=== PATIENT | female | born 1965 | race Caucasian/White ===

== ENCOUNTER 2018-10-17 18:47 | Emergency (ER) | payer SELFPAY ==
[~2018-10-17] VITALS: Ht 162.6 cm; Wt 63.5 kg
--- OUTSIDE RECORDS SUMMARY | 2018-10-17 18:52 | XMS REPORT | Clinical Summary ---
Author Author Admin, Bridgette Organization [facility] [employer] Address Unknown Phone Unavailable Allergies, Adverse Reactions, Alerts Allergy Name Reaction Description Start Date Severity Status Provider HYDROCODONE Critical Active Stephanie Castro APRN NKDA Mild No Longer Active Stephanie Castro APRN NKDA Critical No Longer Active Tressa Sood RN NKDA UNK Inactive Melissa Sher RN Conditions or Problems Problem Name Problem Code Onset Date Status Entry Date Provider Comment Standard Description Annotate Axillary acute lymphangitis, left 682.3 Active Roman Toledo MD Cellulitis and abscess of upper arm and forearm BMI 24-24.9 Active Stephanie Castro APRN Body Mass Index between 19-24, adult Laceration with foreign body of right index finger with damage to nail, initial encounter 883.1 Active Stephaine Castro APRN Open wound of fingers, complicated WITHOUT FB Encounter for removal of sutures V58.32 Inactive Stephanie Castro APRN Encounter for removal of sutures Encounter for removal of sutures ICD-V58.32 Inactive Stephanie Ruffinum HOSPITAL EDUCATOR Medication List Medication Instructions Start Date Stop Date Generic Name NDC Status Provider Patient Instruction ENDOCET 5-325 MG ORAL TABLET 1 every 6 hr prn OXYCODONE-ACETAMINOPHEN 84605322665 No Longer Active Stephanie Castro APRN Active BENZONATATE 100 MG ORAL CAPSULE 1 cap as needed 3x aday BENZONATATE 08516497708 No Longer Active Stephanie Ruffinum HUSSEIN Active AUGMENTIN 875-125 MG ORAL TABLET 1 tab every 12 hrs stop 1-30-17 AMOXICILLIN-POT CLAVULANATE 99746059164 No Longer Active Stephanie Castro HUSSEIN Active CYCLOBENZAPRINE HCL 10 MG ORAL TABLET 1 tab TID CYCLOBENZAPRINE HCL 64425726680 No Longer Active Roman Toledo MD Active CYCLOBENZAPRINE HCL 10 MG ORAL TABLET 1 tab TID CYCLOBENZAPRINE HCL 10 MG ORAL TABLET 423354 CYCLOBENZAPRINE HCL Inactive AUGMENTIN 875-125 MG ORAL TABLET 1 tab every 12 hrs stop 08-11-16 AUGMENTIN 875-125 MG ORAL TABLET 474041 AMOXICILLIN-POT CLAVULANATE Inactive BENZONATATE 100 MG ORAL CAPSULE 1 cap as needed 3x aday BENZONATATE 100 MG ORAL CAPSULE 362756 BENZONATATE Inactive ENDOCET 5-325 MG ORAL TABLET 1 every 6 hr prn ENDOCET 5-325 MG ORAL TABLET [id number] OXYCODONE-ACETAMINOPHEN Inactive Vital Signs Date Name Value Unit Range Description blood pressure, diastolic, repeated by physician 76 BP roca blood pressure, diastolic 76 mm[Hg] BP roca blood pressure, systolic, repeated by physician 110 BP sys blood pressure, systolic 110 mm[Hg] BP sys height E&M 65.5 [in_us] Bdy height pulse rate E&M 74 /min Heart rate temperature E&M 97.6 [degF] Body temperature weight E&M 147 [lb_av] Weight Measured blood pressure, diastolic, repeated by physician 83 BP roca blood pressure, diastolic 83 mm[Hg] BP roca blood pressure, systolic, repeated by physician 116 BP sys blood pressure, systolic 116 mm[Hg] BP sys height E&M 65.5 [in_us] Bdy height pulse rate E&M 71 /min Heart rate temperature E&M 97.8 [degF] Body temperature weight E&M 146 [lb_av] Weight Measured Diagnostic Results Date Name Value Unit Range Description Office Visit: WC-cut rt pointer finger - Chemistry HDL cholesterol, serum, target level 40 mg/dL cholesterol, target level 200 mg/dL triglyceride, target level 150 mg/dL Encounters Code Encounter Date Provider Facility CPT-84689 Level 2 Est. Patient 19:39:20 ORDER ADMINISTRATOR Stephaniederrell Castro APRN [facility] [place] CPT-57906 Level 3 New Patient 17:10:13 ORDER ADMINISTRATOR Roman Toledo MD [facility] Procedures Code Procedure Name Date Entry Date Standard Description CPT-LAC Laceration 11:23:18 ORDER ADMINISTRATOR CPT-62755 First Vx - Ix admin via ID IM or jet injects without counseling by physician 11:16:37 ORDER ADMINISTRATOR CPT-81534 Boost[employer] Intramuscular Suspension 5-2.5-18.5 11:16:37 ORDER ADMINISTRATOR
--- OUTSIDE RECORDS SUMMARY | 2018-10-17 18:52 | XMS REPORT | Clinical Summary ---
Author Author Admin, E Organization [facility] [employer] Address Unknown Phone Unavailable Allergies, Adverse Reactions, Alerts Allergy Name Reaction Description Start Date Severity Status Provider HYDROCODONE Critical Active Stephanie Ruffinum HUSSEIN NKDA Mild No Longer Active Stephanie Yokum HUSSEIN NKDA Critical No Longer Active Tressa Sood RN NKDA UNK Inactive Melissa Sher RN Conditions or Problems Problem Name Problem Code Onset Date Status Entry Date Provider Comment Standard Description Annotate Axillary acute lymphangitis, left 682.3 Active Roman Toledo MD Cellulitis and abscess of upper arm and forearm BMI 24-24.9 Active Stephaniederrell Castro APRN Body Mass Index between 19-24, adult Laceration with foreign body of right index finger with damage to nail, initial encounter 883.1 Active Stephanie Castro APRN Open wound of fingers, complicated WITHOUT FB Encounter for removal of sutures V58.32 Inactive Stephanie Castro APRN Encounter for removal of sutures Encounter for removal of sutures ICD-V58.32 Inactive Stephanie Yokum CUSTOMER SERVICE DRIVER Medication List Medication Instructions Start Date Stop Date Generic Name NDC Status Provider Patient Instruction ENDOCET 5-325 MG ORAL TABLET 1 every 6 hr prn OXYCODONE-ACETAMINOPHEN 52266023478 No Longer Active Stephanie Yokum HUSSEIN Active BENZONATATE 100 MG ORAL CAPSULE 1 cap as needed 3x aday BENZONATATE 64425475711 No Longer Active Stephanie Yokum CUSTOMER SERVICE DRIVER Active AUGMENTIN 875-125 MG ORAL TABLET 1 tab every 12 hrs stop 08-11-16 AMOXICILLIN-POT CLAVULANATE 13771329621 No Longer Active Stephanie Castro HUSSEIN Active CYCLOBENZAPRINE HCL 10 MG ORAL TABLET 1 tab TID CYCLOBENZAPRINE HCL 25049319434 No Longer Active Roman Toledo MD Active CYCLOBENZAPRINE HCL 10 MG ORAL TABLET 1 tab TID CYCLOBENZAPRINE HCL 10 MG ORAL TABLET 829590 CYCLOBENZAPRINE HCL Inactive AUGMENTIN 875-125 MG ORAL TABLET 1 tab every 12 hrs stop 08-11-16 AUGMENTIN 875-125 MG ORAL TABLET 327959 AMOXICILLIN-POT CLAVULANATE Inactive BENZONATATE 100 MG ORAL CAPSULE 1 cap as needed 3x aday BENZONATATE 100 MG ORAL CAPSULE 277484 BENZONATATE Inactive ENDOCET 5-325 MG ORAL TABLET 1 every 6 hr prn ENDOCET 5-325 MG ORAL TABLET 1322687 OXYCODONE-ACETAMINOPHEN Inactive Vital Signs Date Name Value [...] mg/dL Encounters Code Encounter Date Provider Facility CPT-26721 Level 2 Est. Patient 19:39:20 TRAY DRIER OPERATOR Stephaniederrell Castro APRN [facility] CPT-62774 Level 3 New Patient 17:10:13 TRAY DRIER OPERATOR Roman [facility]edo MD [facility] Procedures Code Procedure Name Date Entry Date Standard Description CPT-LAC Laceration 11:23:18 TRAY DRIER OPERATOR CPT-75182 First Vx - Ix admin via ID IM or jet injects without counseling by physician 11:16:37 TRAY DRIER OPERATOR CPT-52460 Boostrix Intramuscular Suspension 5-2.5-18.5 11:16:37 TRAY DRIER OPERATOR
--- OUTSIDE RECORDS SUMMARY | 2018-10-17 18:52 | XMS REPORT | Clinical Summary ---
Author Author Admin, E Organization [facility] [employer] Address Unknown Phone Unavailable Allergies, Adverse Reactions, Alerts Allergy Name Reaction Description Start Date Severity Status Provider HYDROCODONE Critical Active Stephanie Ruffinum BOARD SAW RUNNER NKDA Mild No Longer Active Stephaniederrell Ruffinum HUSSEIN NKDA Critical No Longer Active Tressa [...] FB Encounter for removal of sutures V58.32 Active Stephanie Castro APRN Encounter for removal of sutures Medication List Medication Instructions Start Date Stop Date Generic Name [facility] Status Provider Patient Instruction ENDOCET 5-325 MG ORAL TABLET 1 every 6 hr prn OXYCODONE-ACETAMINOPHEN 46154742507 No Longer Active Stephanie Yoladonnaum BOARD SAW RUNNER Active BENZONATATE 100 MG ORAL CAPSULE 1 cap as needed 3x aday BENZONATATE 80461451325 No Longer Active Stephanie Yokum BOARD SAW RUNNER Active AUGMENTIN 875-125 MG ORAL TABLET 1 tab every 12 hrs stop 08-11-16 AMOXICILLIN-POT CLAVULANATE 70741583102 No Longer Active Stephanie Yokum BOARD SAW RUNNER Active CYCLOBENZAPRINE HCL 10 MG ORAL TABLET 1 tab TID CYCLOBENZAPRINE HCL 34539188783 No Longer Active Roman Toledo MD Active CYCLOBENZAPRINE HCL 10 MG ORAL TABLET 1 tab TID CYCLOBENZAPRINE HCL 10 MG ORAL TABLET 218230 CYCLOBENZAPRINE HCL Inactive AUGMENTIN 875-125 MG ORAL TABLET 1 tab every 12 hrs stop 08-11-16 AUGMENTIN 875-125 MG ORAL TABLET 908548 AMOXICILLIN-POT CLAVULANATE Inactive BENZONATATE 100 MG ORAL CAPSULE 1 cap as needed 3x aday BENZONATATE 100 MG ORAL CAPSULE 622566 BENZONATATE Inactive ENDOCET 5-325 MG ORAL TABLET 1 every 6 hr prn ENDOCET 5-325 MG ORAL TABLET 4789354 OXYCODONE-ACETAMINOPHEN Inactive Vital Signs Date Name Value [...] mg/dL Encounters Code Encounter Date Provider Facility CPT-13547 Level 2 Est. Patient 19:39:20 OPERATIONAL TRAINER Stephanie Castro APRN [facility] [place] CPT-48454 Level 3 New Patient 17:10:13 OPERATIONAL TRAINER Roman Toledo MD [facility] Procedures Code Procedure Name Date Entry Date Standard Description CPT-LAC Laceration 11:23:18 OPERATIONAL TRAINER CPT-28374 First Vx - Ix admin via ID IM or jet injects without counseling by physician 11:16:37 OPERATIONAL TRAINER CPT-13300 Boost[employer] Intramuscular Suspension 5-2.5-18.5 11:16:37 OPERATIONAL TRAINER
--- OUTSIDE RECORDS SUMMARY | 2018-10-17 18:53 | XMS REPORT | Clinical Summary ---
Author Author Admin, Bridgette Organization [facility] Address Unknown Phone Unavailable Allergies, Adverse Reactions, Alerts Allergy Name Reaction Description Start Date Severity Status Provider HYDROCODONE Critical Active Stephanie Coltladonnaum HEAT TREAT FURNACE OPERATOR NKDA Mild No Longer Active Stephanie Yokum HEAT TREAT FURNACE OPERATOR NKDA Critical No Longer Active Tressa Sood RN NKDA UNK Inactive Melissa Sher RN Conditions or Problems Problem Name Problem Code Onset Date Status Entry Date Provider Comment Standard Description Annotate Axillary acute lymphangitis, left 682.3 Active Roman Toledo MD Cellulitis and abscess of upper arm and forearm BMI 24-24.9 Active Stephanie Yoreji SAVAGE Body Mass Index between 19-24, adult Laceration with foreign body of right index finger with damage to nail, initial encounter 883.1 Active Stephanie Castro APRN Open wound of fingers, complicated WITHOUT FB Medication List Medication Instructions Start Date Stop Date Generic Name NDC Status Provider Patient Instruction ENDOCET 5-325 MG ORAL TABLET 1 every 6 hr prn OXYCODONE-ACETAMINOPHEN [id number] No Longer Active Stephanie Yokum HEAT TREAT FURNACE OPERATOR Active BENZONATATE 100 MG ORAL CAPSULE 1 cap as needed 3x aday BENZONATATE 64440067592 No Longer Active Stephanie Yokum HEAT TREAT FURNACE OPERATOR Active AUGMENTIN 875-125 MG ORAL TABLET 1 tab every 12 hrs stop 08-11-16 AMOXICILLIN-POT CLAVULANATE 60568540549 No Longer Active Stephanie Ruffinum HEAT TREAT FURNACE OPERATOR Active CYCLOBENZAPRINE HCL 10 MG ORAL TABLET 1 tab TID CYCLOBENZAPRINE HCL 92624422656 No Longer Active Roman Toledo MD Active CYCLOBENZAPRINE HCL 10 MG ORAL TABLET 1 tab TID CYCLOBENZAPRINE HCL 10 MG ORAL TABLET 921904 CYCLOBENZAPRINE HCL Inactive AUGMENTIN 875-125 MG ORAL TABLET 1 tab every 12 hrs stop 08-11-16 AUGMENTIN 875-125 MG ORAL TABLET 842475 AMOXICILLIN-POT CLAVULANATE Inactive BENZONATATE 100 MG ORAL CAPSULE 1 cap as needed 3x aday BENZONATATE 100 MG ORAL CAPSULE 695640 BENZONATATE Inactive ENDOCET 5-325 MG ORAL TABLET 1 every 6 hr prn ENDOCET 5-325 MG ORAL TABLET 3800665 OXYCODONE-ACETAMINOPHEN Inactive Vital Signs Date Name Value Unit Range Description blood pressure, diastolic, repeated by physician 83 [...] mg/dL Encounters Code Encounter Date Provider Facility CPT-19488 Level 3 New Patient 17:10:13 IT APPLICATION ARCHITECT Roman Toledo MD [facility] Procedures Code Procedure Name Date Entry Date Standard Description CPT-LAC Laceration 11:23:18 IT APPLICATION ARCHITECT CPT-45689 First Vx - Ix admin via ID IM or jet injects without counseling by physician 11:16:37 IT APPLICATION ARCHITECT CPT-59703 Boostrix Intramuscular Suspension 5-2.5-18.5 11:16:37 IT APPLICATION ARCHITECT
--- OUTSIDE RECORDS SUMMARY | 2018-10-17 18:53 | XMS REPORT | Clinical Summary ---
Author Author Admin, E Organization [employer] Address Unknown Phone Unavailable Allergies, Adverse Reactions, Alerts Allergy Name Reaction Description Start Date Severity Status Provider HYDROCODONE Critical Active Stephaniederrell Ruffinum AEROSPACE MEDICINE PHYSICIAN NKDA Mild No Longer Active Stephanie Coltladonnaum AEROSPACE MEDICINE PHYSICIAN NKDA Critical No Longer Active Tressa Sood RN NKDA UNK Inactive Melissa Sher RN Conditions or Problems Problem Name Problem Code Onset Date Status Entry Date Provider Comment Standard Description Annotate Axillary acute lymphangitis, left 682.3 Active Roman Toledo MD Cellulitis and abscess of upper arm and forearm BMI 24-24.9 Active Stephanie Augustinum AEROSPACE MEDICINE PHYSICIAN Body Mass Index between 19-24, adult Laceration with foreign body of right index finger with damage to nail, initial encounter 883.1 Active Stephanie Castro APRN Open wound of fingers, complicated WITHOUT FB Medication List Medication Instructions Start Date Stop Date Generic Name ND Status Provider Patient Instruction ENDOCET 5-325 MG ORAL TABLET 1 every 6 hr prn OXYCODONE-ACETAMINOPHEN [id number] No Longer Active Stephanie Augustinum HUSSEIN Active BENZONATATE 100 MG ORAL CAPSULE 1 cap as needed 3x aday BENZONATATE 01160797624 No Longer Active Stephanie Yokum AEROSPACE MEDICINE PHYSICIAN Active AUGMENTIN 875-125 MG ORAL TABLET 1 tab every 12 hrs stop 08-11-16 AMOXICILLIN-POT CLAVULANATE 41998085255 No Longer Active Stephanie Yoladonnaum AEROSPACE MEDICINE PHYSICIAN Active CYCLOBENZAPRINE HCL 10 MG ORAL TABLET 1 tab TID CYCLOBENZAPRINE HCL 43772046394 No Longer Active Roman Toledo MD Active CYCLOBENZAPRINE HCL 10 MG ORAL TABLET 1 tab TID CYCLOBENZAPRINE HCL 10 MG ORAL TABLET 727194 CYCLOBENZAPRINE HCL Inactive AUGMENTIN 875-125 MG ORAL TABLET 1 tab every 12 hrs stop 08-11-16 AUGMENTIN 875-125 MG ORAL TABLET 459751 AMOXICILLIN-POT CLAVULANATE Inactive BENZONATATE 100 MG ORAL CAPSULE 1 cap as needed 3x aday BENZONATATE 100 MG ORAL CAPSULE 700700 BENZONATATE Inactive ENDOCET 5-325 MG ORAL TABLET 1 every 6 hr prn ENDOCET 5-325 MG ORAL TABLET 2487097 OXYCODONE-ACETAMINOPHEN Inactive Vital Signs Date Name Value [...] mg/dL Encounters Code Encounter Date Provider Facility CPT-42358 Level 3 New Patient 17:10:13 SLEEVE BASTER Roman Toledo MD [facility] Procedures Code Procedure Name Date Entry Date Standard Description CPT-LAC Laceration 11:23:18 SLEEVE BASTER CPT-80475 First Vx - Ix admin via ID IM or jet injects without counseling by physician 11:16:37 SLEEVE BASTER CPT-17016 Boostrix Intramuscular Suspension 5-2.5-18.5 11:16:37 SLEEVE BASTER
--- OUTSIDE RECORDS SUMMARY | 2018-10-17 18:53 | XMS REPORT | Clinical Summary ---
Author Author Admin, E Organization [employer] Address Unknown Phone Unavailable Allergies, Adverse Reactions, Alerts Allergy Name Reaction Description Start Date Severity Status Provider HYDROCODONE Critical Active Stephaniederrell Ruffinum WEB ENGINEER NKDA Mild No Longer Active Stephanie Coltladonnaum WEB ENGINEER NKDA Critical No Longer Active Tressa Sood RN NKDA UNK Inactive Melissa Sher RN Conditions or Problems Problem Name Problem Code Onset Date Status Entry Date Provider Comment Standard Description Annotate Axillary acute lymphangitis, left 682.3 Active Roman Toledo MD Cellulitis and abscess of upper arm and forearm BMI 24-24.9 Active Stephanie Augustinum WEB ENGINEER Body Mass Index between 19-24, adult Laceration with foreign body of right index finger with damage to nail, initial encounter 883.1 Active Stephanie Castro APRN Open wound of fingers, complicated WITHOUT FB Medication List Medication Instructions Start Date Stop Date Generic Name ND Status Provider Patient Instruction ENDOCET 5-325 MG ORAL TABLET 1 every 6 hr prn OXYCODONE-ACETAMINOPHEN 44216788954 No Longer Active Stephanie Augustinum HUSSEIN Active BENZONATATE 100 MG ORAL CAPSULE 1 cap as needed 3x aday BENZONATATE 52450570709 No Longer Active Stephanie Yokum WEB ENGINEER Active AUGMENTIN 875-125 MG ORAL TABLET 1 tab every 12 hrs stop 08-11-16 AMOXICILLIN-POT CLAVULANATE 44129599608 No Longer Active Stephanie Yoladonnaum WEB ENGINEER Active CYCLOBENZAPRINE HCL 10 MG ORAL TABLET 1 tab TID CYCLOBENZAPRINE HCL 36165583825 No Longer Active Roman Toledo MD Active CYCLOBENZAPRINE HCL 10 MG ORAL TABLET 1 tab TID CYCLOBENZAPRINE HCL 10 MG ORAL TABLET 429719 CYCLOBENZAPRINE HCL Inactive AUGMENTIN 875-125 MG ORAL TABLET 1 tab every 12 hrs stop 08-11-16 AUGMENTIN 875-125 MG ORAL TABLET 235272 AMOXICILLIN-POT CLAVULANATE Inactive BENZONATATE 100 MG ORAL CAPSULE 1 cap as needed 3x aday BENZONATATE 100 MG ORAL CAPSULE 476590 BENZONATATE Inactive ENDOCET 5-325 MG ORAL TABLET 1 every 6 hr prn ENDOCET 5-325 MG ORAL TABLET 7144850 OXYCODONE-ACETAMINOPHEN Inactive Vital Signs Date Name Value [...] mg/dL Encounters Code Encounter Date Provider Facility CPT-92031 Level 3 New Patient 17:10:13 PRE ALGEBRA TEACHER Roman Toledo MD [facility] Procedures Code Procedure Name Date Entry Date Standard Description CPT-LAC Laceration 11:23:18 PRE ALGEBRA TEACHER CPT-04286 First Vx - Ix admin via ID IM or jet injects without counseling by physician 11:16:37 PRE ALGEBRA TEACHER CPT-70863 Boostrix Intramuscular Suspension 5-2.5-18.5 11:16:37 PRE ALGEBRA TEACHER
--- OUTSIDE RECORDS SUMMARY | 2018-10-17 18:53 | XMS REPORT | Clinical Summary ---
Author Author Admin, E Organization [facility] [employer] Address Unknown Phone Unavailable Allergies, Adverse Reactions, Alerts Allergy Name Reaction Description Start Date Severity Status Provider HYDROCODONE Critical Active Stephanie Ruffinum DONOR SERVICES SPECIALIST NKDA Mild No Longer Active Stephanie Yokum HUSSEIN NKDA Critical No Longer Active Tressa Sood RN NKDA UNK Inactive Melissa Sher RN Conditions or Problems Problem Name Problem Code Onset Date Status Entry Date Provider Comment Standard Description Annotate Axillary acute lymphangitis, left 682.3 Active Roman Toledo MD Cellulitis and abscess of upper arm and forearm BMI 24-24.9 Active Stephanie Yokum HUSSEIN Body Mass Index between 19-24, adult Laceration with foreign body of right index finger with damage to nail, initial encounter 883.1 Active Stephanie Ruffinum HUSSEIN Open wound of fingers, complicated WITHOUT FB Encounter for removal of sutures V58.32 Active Stephanie Ruffinum HUSSEIN Encounter for removal of sutures Medication List Medication Instructions Start Date Stop Date Generic Name NDC Status Provider Patient Instruction ENDOCET 5-325 MG ORAL TABLET 1 every 6 hr prn OXYCODONE-ACETAMINOPHEN 19651003152 No Longer Active Stephanie Yokum DONOR SERVICES SPECIALIST Active BENZONATATE 100 MG ORAL CAPSULE 1 cap as needed 3x aday BENZONATATE 36122413814 No Longer Active Stephanie Yokum DONOR SERVICES SPECIALIST Active AUGMENTIN 875-125 MG ORAL TABLET 1 tab every 12 hrs stop 08-11-16 AMOXICILLIN-POT CLAVULANATE 38994539483 No Longer Active Stephanie Yokum HUSSEIN Active CYCLOBENZAPRINE HCL 10 MG ORAL TABLET 1 tab TID CYCLOBENZAPRINE HCL 30351506819 No Longer Active Roman Toledo MD Active CYCLOBENZAPRINE HCL 10 MG ORAL TABLET 1 tab TID CYCLOBENZAPRINE HCL 10 MG ORAL TABLET 449700 CYCLOBENZAPRINE HCL Inactive AUGMENTIN 875-125 MG ORAL TABLET 1 tab every 12 hrs stop 08-11-16 AUGMENTIN 875-125 MG ORAL TABLET 115093 AMOXICILLIN-POT CLAVULANATE Inactive BENZONATATE 100 MG ORAL CAPSULE 1 cap as needed 3x aday BENZONATATE 100 MG ORAL CAPSULE 753516 BENZONATATE Inactive ENDOCET 5-325 MG ORAL TABLET 1 every 6 hr prn ENDOCET 5-325 MG ORAL TABLET 4673083 OXYCODONE-ACETAMINOPHEN Inactive Vital Signs Date Name Value [...] mg/dL Encounters Code Encounter Date Provider Facility CPT-39153 Level 2 Est. Patient 19:39:20 FANCY NEEDLEWORKER Stephanie Castro APRN [facility] CPT-53594 Level 3 New Patient 17:10:13 FANCY NEEDLEWORKER Roman Toledo MD [facility] Procedures Code Procedure Name Date Entry Date Standard Description CPT-LAC Laceration 11:23:18 FANCY NEEDLEWORKER CPT-94518 First Vx - Ix admin via ID IM or jet injects without counseling by physician 11:16:37 FANCY NEEDLEWORKER CPT-63833 Boostrix Intramuscular Suspension 5-2.5-18.5 11:16:37 FANCY NEEDLEWORKER
--- OUTSIDE RECORDS SUMMARY | 2018-10-17 18:53 | XMS REPORT | Clinical Summary ---
Author Author Admin, E Organization [employer] Address Unknown Phone Unavailable Allergies, Adverse Reactions, Alerts Allergy Name Reaction Description Start Date Severity Status Provider HYDROCODONE Critical Active Stephaniederrell Ruffinum AUTOMATION TEST DEVELOPER NKDA Mild No Longer Active Stephanie Coltladonnaum AUTOMATION TEST DEVELOPER NKDA Critical No Longer Active Tressa Sood RN NKDA UNK Inactive Melissa Sher RN Conditions or Problems Problem Name Problem Code Onset Date Status Entry Date Provider Comment Standard Description Annotate Axillary acute lymphangitis, left 682.3 Active Roman Toledo MD Cellulitis and abscess of upper arm and forearm BMI 24-24.9 Active Stephanie Augustinum AUTOMATION TEST DEVELOPER Body Mass Index between 19-24, adult Laceration with foreign body of right index finger with damage to nail, initial encounter 883.1 Active Stephanie Castro APRN Open wound of fingers, complicated WITHOUT FB Medication List Medication Instructions Start Date Stop Date Generic Name ND Status Provider Patient Instruction ENDOCET 5-325 MG ORAL TABLET 1 every 6 hr prn OXYCODONE-ACETAMINOPHEN 80930293269 No Longer Active Stephanie Augustinum HUSSEIN Active BENZONATATE 100 MG ORAL CAPSULE 1 cap as needed 3x aday BENZONATATE 27747000636 No Longer Active Stephanie Yokum AUTOMATION TEST DEVELOPER Active AUGMENTIN 875-125 MG ORAL TABLET 1 tab every 12 hrs stop 08-11-16 AMOXICILLIN-POT CLAVULANATE 42782906259 No Longer Active Stephanie Yoladonnaum AUTOMATION TEST DEVELOPER Active CYCLOBENZAPRINE HCL 10 MG ORAL TABLET 1 tab TID CYCLOBENZAPRINE HCL 19043235052 No Longer Active Roman Toledo MD Active CYCLOBENZAPRINE HCL 10 MG ORAL TABLET 1 tab TID CYCLOBENZAPRINE HCL 10 MG ORAL TABLET 805613 CYCLOBENZAPRINE HCL Inactive AUGMENTIN 875-125 MG ORAL TABLET 1 tab every 12 hrs stop 08-11-16 AUGMENTIN 875-125 MG ORAL TABLET 524333 AMOXICILLIN-POT CLAVULANATE Inactive BENZONATATE 100 MG ORAL CAPSULE 1 cap as needed 3x aday BENZONATATE 100 MG ORAL CAPSULE 439721 BENZONATATE Inactive ENDOCET 5-325 MG ORAL TABLET 1 every 6 hr prn ENDOCET 5-325 MG ORAL TABLET 2042258 OXYCODONE-ACETAMINOPHEN Inactive Vital Signs Date Name Value [...] mg/dL Encounters Code Encounter Date Provider Facility CPT-20855 Level 3 New Patient 17:10:13 AVIATION ENGINEER Roman Toledo MD [facility] Procedures Code Procedure Name Date Entry Date Standard Description CPT-LAC Laceration 11:23:18 AVIATION ENGINEER CPT-51546 First Vx - Ix admin via ID IM or jet injects without counseling by physician 11:16:37 AVIATION ENGINEER CPT-95475 Boostrix Intramuscular Suspension 5-2.5-18.5 11:16:37 AVIATION ENGINEER
--- OUTSIDE RECORDS SUMMARY | 2018-10-17 18:53 | XMS REPORT | Clinical Summary ---
Author Author Admin, Bridgette Organization [facility] Address Unknown Phone Unavailable Allergies, Adverse Reactions, Alerts Allergy Name Reaction Description Start Date Severity Status Provider HYDROCODONE Critical Active Stephanie Coltladonnaum MOTOR VEHICLE FIELD REPRESENTATIVE NKDA Mild No Longer Active Stephanie Yokum MOTOR VEHICLE FIELD REPRESENTATIVE NKDA Critical No Longer Active Tressa Sood [...] TABLET 1 every 6 hr prn OXYCODONE-ACETAMINOPHEN 97692043941 No Longer Active Stephanie Yokum MOTOR VEHICLE FIELD REPRESENTATIVE Active BENZONATATE 100 MG ORAL CAPSULE 1 cap as needed 3x aday BENZONATATE 90419277967 No Longer Active Stephanie Yokum MOTOR VEHICLE FIELD REPRESENTATIVE Active AUGMENTIN 875-125 MG ORAL TABLET 1 tab every 12 hrs stop 08-11-16 AMOXICILLIN-POT CLAVULANATE 73001634120 No Longer Active Stephanie Ruffinum MOTOR VEHICLE FIELD REPRESENTATIVE Active CYCLOBENZAPRINE HCL 10 MG ORAL TABLET 1 tab TID CYCLOBENZAPRINE HCL 93573826581 No Longer Active Roman Toledo MD Active CYCLOBENZAPRINE HCL 10 MG ORAL TABLET 1 tab TID CYCLOBENZAPRINE HCL 10 MG ORAL TABLET 965958 CYCLOBENZAPRINE HCL Inactive AUGMENTIN 875-125 MG ORAL TABLET 1 tab every 12 hrs stop 08-11-16 AUGMENTIN 875-125 MG ORAL TABLET 999866 AMOXICILLIN-POT CLAVULANATE Inactive BENZONATATE 100 MG ORAL CAPSULE 1 cap as needed 3x aday BENZONATATE 100 MG ORAL CAPSULE 992971 BENZONATATE Inactive ENDOCET 5-325 MG ORAL TABLET 1 every 6 hr prn ENDOCET 5-325 MG ORAL TABLET 5765512 OXYCODONE-ACETAMINOPHEN Inactive Vital Signs Date Name Value [...] mg/dL Encounters Code Encounter Date Provider Facility CPT-56929 Level 3 New Patient 17:10:13 DOCTOR CHIROPRACTIC Roman Toledo MD [facility] Procedures Code Procedure Name Date Entry Date Standard Description CPT-LAC Laceration 11:23:18 DOCTOR CHIROPRACTIC CPT-91334 First Vx - Ix admin via ID IM or jet injects without counseling by physician 11:16:37 DOCTOR CHIROPRACTIC CPT-01427 Boostrix Intramuscular Suspension 5-2.5-18.5 11:16:37 DOCTOR CHIROPRACTIC
--- OUTSIDE RECORDS SUMMARY | 2018-10-17 18:53 | XMS REPORT | Clinical Summary ---
Author Author Admin, E Organization [facility] Address Unknown Phone Unavailable Allergies, Adverse Reactions, Alerts Allergy Name Reaction Description Start Date Severity Status Provider HYDROCODONE Critical Active Stephanie Gregorykum GANG INVESTIGATOR NKDA Mild No Longer Active Stephanie Yokum [...] TABLET 1 every 6 hr prn OXYCODONE-ACETAMINOPHEN 27256088233 No Longer Active Stephanie Yokum GANG INVESTIGATOR Active BENZONATATE 100 MG ORAL CAPSULE 1 cap as needed 3x aday BENZONATATE 75588774610 No Longer Active Stephanie Yokum GANG INVESTIGATOR Active AUGMENTIN 875-125 MG ORAL TABLET 1 tab every 12 hrs stop 08-11-16 AMOXICILLIN-POT CLAVULANATE 84824974593 No Longer Active Stephanie Yokum HUSSEIN Active CYCLOBENZAPRINE HCL 10 MG ORAL TABLET 1 tab TID CYCLOBENZAPRINE HCL 33596453151 No Longer Active Roman Toledo MD Active CYCLOBENZAPRINE HCL 10 MG ORAL TABLET 1 tab TID CYCLOBENZAPRINE HCL 10 MG ORAL TABLET 545686 CYCLOBENZAPRINE HCL Inactive AUGMENTIN 875-125 MG ORAL TABLET 1 tab every 12 hrs stop 08-11-16 AUGMENTIN 875-125 MG ORAL TABLET 938416 AMOXICILLIN-POT CLAVULANATE Inactive BENZONATATE 100 MG ORAL CAPSULE 1 cap as needed 3x aday BENZONATATE 100 MG ORAL CAPSULE 276379 BENZONATATE Inactive ENDOCET 5-325 MG ORAL TABLET 1 every 6 hr prn ENDOCET 5-325 MG ORAL TABLET 7983642 OXYCODONE-ACETAMINOPHEN Inactive Vital Signs Date Name Value [...] mg/dL Encounters Code Encounter Date Provider Facility CPT-09718 Level 2 Est. Patient 19:39:20 CABINET PROFESSIONAL Stephanie Castro APRN [facility] CPT-80200 Level 3 New Patient 17:10:13 CABINET PROFESSIONAL Roman Toledo MD [facility] Procedures Code Procedure Name Date Entry Date Standard Description CPT-LAC Laceration 11:23:18 CABINET PROFESSIONAL CPT-58170 First Vx - Ix admin via ID IM or jet injects without counseling by physician 11:16:37 CABINET PROFESSIONAL CPT-41308 Boostrix Intramuscular Suspension 5-2.5-18.5 11:16:37 CABINET PROFESSIONAL
--- OUTSIDE RECORDS SUMMARY | 2018-10-17 18:53 | XMS REPORT | Clinical Summary ---
Author Author Admin, Bridgette Organization [facility] Address Unknown Phone Unavailable Allergies, Adverse Reactions, Alerts Allergy Name Reaction Description Start Date Severity Status Provider HYDROCODONE Critical Active Stephanie Coltladonnaum INFORMATION SYSTEMS SUPERVISOR NKDA Mild No Longer Active Stephanie Yokum INFORMATION SYSTEMS SUPERVISOR NKDA Critical No Longer Active Tressa Sood [...] TABLET 1 every 6 hr prn OXYCODONE-ACETAMINOPHEN 78759724257 No Longer Active Stephanie Yokum INFORMATION SYSTEMS SUPERVISOR Active BENZONATATE 100 MG ORAL CAPSULE 1 cap as needed 3x aday BENZONATATE 26445236923 No Longer Active Stephanie Yokum INFORMATION SYSTEMS SUPERVISOR Active AUGMENTIN 875-125 MG ORAL TABLET 1 tab every 12 hrs stop 08-11-16 AMOXICILLIN-POT CLAVULANATE 48011202697 No Longer Active Stephanie Ruffinum INFORMATION SYSTEMS SUPERVISOR Active CYCLOBENZAPRINE HCL 10 MG ORAL TABLET 1 tab TID CYCLOBENZAPRINE HCL 89093984284 No Longer Active Roman Toledo MD Active CYCLOBENZAPRINE HCL 10 MG ORAL TABLET 1 tab TID CYCLOBENZAPRINE HCL 10 MG ORAL TABLET 274911 CYCLOBENZAPRINE HCL Inactive AUGMENTIN 875-125 MG ORAL TABLET 1 tab every 12 hrs stop 08-11-16 AUGMENTIN 875-125 MG ORAL TABLET 233935 AMOXICILLIN-POT CLAVULANATE Inactive BENZONATATE 100 MG ORAL CAPSULE 1 cap as needed 3x aday BENZONATATE 100 MG ORAL CAPSULE 564355 BENZONATATE Inactive ENDOCET 5-325 MG ORAL TABLET 1 every 6 hr prn ENDOCET 5-325 MG ORAL TABLET 7269676 OXYCODONE-ACETAMINOPHEN Inactive Vital Signs Date Name Value Unit Range Description blood pressure, diastolic, repeated by physician 83 BP roac blood pressure, diastolic 83 mm[Hg] BP roca [...] mg/dL Encounters Code Encounter Date Provider Facility CPT-32480 Level 3 New Patient 17:10:13 PROGRAM OFFICER Roman Toledo MD [facility] Procedures Code Procedure Name Date Entry Date Standard Description CPT-LAC Laceration 11:23:18 PROGRAM OFFICER CPT-38445 First Vx - Ix admin via ID IM or jet injects without counseling by physician 11:16:37 PROGRAM OFFICER CPT-70202 Boostrix Intramuscular Suspension 5-2.5-18.5 11:16:37 PROGRAM OFFICER
--- OUTSIDE RECORDS SUMMARY | 2018-10-17 18:54 | XMS REPORT | Clinical Summary ---
Author Author Admin, Bridgette Organization [facility] Address Unknown Phone Unavailable Allergies, Adverse Reactions, Alerts Allergy Name Reaction Description Start Date Severity Status Provider NKDA Critical Active Tressa Sood RN Conditions or Problems Problem Name Problem Code Onset Date Status Entry Date Provider Comment Standard Description Annotate Axillary acute lymphangitis, left 682.3 Active Roman Toledo MD Cellulitis and abscess of upper arm and forearm Medication List Medication Instructions Start Date Stop Date Generic Name NDC Status Provider Patient Instruction ENDOCET 5-325 MG ORAL TABS 1 every 6 hr prn OXYCODONE- ACETAMINOPHEN 63032218770 Active Roman Toledo MD Active CYCLOBENZAPRINE HCL 10 MG ORAL TABS 1 tab TID CYCLOBENZAPRINE HCL 42042457668 No Longer Active Roman Toledo MD Active AUGMENTIN 875-125 MG ORAL TABS 1 tab every 12 hrs stop 08-11-16 AMOXICILLIN-POT CLAVULANATE 93964649593 Active Tressa Sood RN Active BENZONATATE 100 MG ORAL CAPS 1 cap as needed 3x aday BENZONATATE 49787909433 Active Tressa Sood RN Active CYCLOBENZAPRINE HCL 10 MG ORAL TABS 1 tab TID CYCLOBENZAPRINE HCL 10 MG ORAL TABS 107515 CYCLOBENZAPRINE HCL Inactive Encounters Code Encounter Date Provider Facility CPT-48933 Level 3 New Patient 17:10:13 LIFE CARE PLANNER Roman Toledo MD [facility]
--- OUTSIDE RECORDS SUMMARY | 2018-10-17 18:54 | XMS REPORT | Clinical Summary ---
Author Author Admin, [facility] Organization [facility] Address Unknown Phone Unavailable Allergies, Adverse Reactions, Alerts Allergy Name Reaction Description Start Date Severity Status Provider NKDA Critical Active Tressa Sood RN Conditions or Problems Problem Name Problem Code Onset Date Status Entry Date Provider Comment Standard Description Annotate Problems Unknown Active Medication List Medication Instructions Start Date Stop Date Generic Name NDC Status Provider Patient Instruction AUGMENTIN 875-125 MG ORAL TABS 1 tab every 12 hrs stop 08-11-16 AMOXICILLIN-POT CLAVULANATE 00806864926 Active Tressa Sood RN Active CYCLOBENZAPRINE HCL 10 MG ORAL TABS 1 tab TID CYCLOBENZAPRINE HCL 42878622229 Active Tressa Sood RN Active BENZONATATE 100 MG ORAL CAPS 1 cap as needed 3x aday BENZONATATE 04605264741 Active Tressa Sood RN Active
--- OUTSIDE RECORDS SUMMARY | 2018-10-17 18:54 | XMS REPORT | Clinical Summary ---
Author Author Admin, E Organization [employer] Address Unknown Phone Unavailable Allergies, Adverse Reactions, Alerts Allergy Name Reaction Description Start Date Severity Status Provider HYDROCODONE Critical Active Stephanie Yoladonnaum SOFA INSPECTOR NKDA Mild No Longer Active Stephanie Coltladonnaum SOFA INSPECTOR NKDA Critical No Longer Active Tressa Sood RN NKDA UNK Inactive Melissa Sher RN Conditions or Problems Problem Name Problem Code Onset Date Status Entry Date Provider Comment Standard Description Annotate Axillary acute lymphangitis, left 682.3 Active Roman Toledo MD Cellulitis and abscess of upper arm and forearm BMI 24-24.9 Active Stephanie Augustinum SOFA INSPECTOR Body Mass Index between 19-24, adult Laceration with foreign body of right index finger with damage to nail, initial encounter 883.1 Active Stephanie Castro APRN Open wound of fingers, complicated WITHOUT FB Medication List Medication Instructions Start Date Stop Date Generic Name ND Status Provider Patient Instruction ENDOCET 5-325 MG ORAL TABLET 1 every 6 hr prn OXYCODONE-ACETAMINOPHEN 03498618816 No Longer Active Stephanie Augustinum HUSSEIN Active BENZONATATE 100 MG ORAL CAPSULE 1 cap as needed 3x aday BENZONATATE 87810244589 No Longer Active Stephanie Yokum SOFA INSPECTOR Active AUGMENTIN 875-125 MG ORAL TABLET 1 tab every 12 hrs stop 08-11-16 AMOXICILLIN-POT CLAVULANATE 85498393809 No Longer Active Stephanie Yoladonnaum SOFA INSPECTOR Active CYCLOBENZAPRINE HCL 10 MG ORAL TABLET 1 tab TID CYCLOBENZAPRINE HCL 94797111319 No Longer Active Roman Toledo MD Active CYCLOBENZAPRINE HCL 10 MG ORAL TABLET 1 tab TID CYCLOBENZAPRINE HCL 10 MG ORAL TABLET 153464 CYCLOBENZAPRINE HCL Inactive AUGMENTIN 875-125 MG ORAL TABLET 1 tab every 12 hrs stop 08-11-16 AUGMENTIN 875-125 MG ORAL TABLET 957975 AMOXICILLIN-POT CLAVULANATE Inactive BENZONATATE 100 MG ORAL CAPSULE 1 cap as needed 3x aday BENZONATATE 100 MG ORAL CAPSULE 154200 BENZONATATE Inactive ENDOCET 5-325 MG ORAL TABLET 1 every 6 hr prn ENDOCET 5-325 MG ORAL TABLET 2660414 OXYCODONE-ACETAMINOPHEN Inactive Vital Signs Date Name Value [...] mg/dL Encounters Code Encounter Date Provider Facility CPT-43026 Level 3 New Patient 17:10:13 RECREATION TECHNICIAN Roman Toledo MD [facility] Procedures Code Procedure Name Date Entry Date Standard Description CPT-LAC Laceration 11:23:18 RECREATION TECHNICIAN CPT-95085 First Vx - Ix admin via ID IM or jet injects without counseling by physician 11:16:37 RECREATION TECHNICIAN CPT-32290 Boostrix Intramuscular Suspension 5-2.5-18.5 11:16:37 RECREATION TECHNICIAN
--- OUTSIDE RECORDS SUMMARY | 2018-10-17 18:54 | XMS REPORT | Clinical Summary ---
Author Author Admin, [facility] Organization [facility] Address Unknown Phone Unavailable Allergies, Adverse Reactions, [...] every 12 hrs stop 08-11-16 AMOXICILLIN-POT CLAVULANATE 95755259585 Active Tressa Sood RN Active CYCLOBENZAPRINE HCL 10 MG ORAL TABS 1 tab TID CYCLOBENZAPRINE HCL 59811334567 Active Tressa Sood RN Active BENZONATATE 100 MG ORAL CAPS 1 cap as needed 3x aday BENZONATATE 02817606665 Active Tressa Sood RN Active
--- OUTSIDE RECORDS SUMMARY | 2018-10-17 18:54 | XMS REPORT | Clinical Summary ---
Author Author Admin, E Organization [employer] Address Unknown Phone Unavailable Allergies, Adverse Reactions, Alerts Allergy Name Reaction Description Start Date Severity Status Provider HYDROCODONE Critical Active Stephaniederrell Ruffinum AUTOMOTIVE SPECIALTY TECHNICIAN NKDA Mild No Longer Active Stephanie Coltladonnaum AUTOMOTIVE SPECIALTY TECHNICIAN NKDA Critical No Longer Active Tressa Sood RN NKDA UNK Inactive Melissa Sher RN Conditions or Problems Problem Name Problem Code Onset Date Status Entry Date Provider Comment Standard Description Annotate Axillary acute lymphangitis, left 682.3 Active Roman Toledo MD Cellulitis and abscess of upper arm and forearm BMI 24-24.9 Active Stephanie Augustinum AUTOMOTIVE SPECIALTY TECHNICIAN Body Mass Index between 19-24, adult Laceration with foreign body of right index finger with damage to nail, initial encounter 883.1 Active Stephanie Castro APRN Open wound of fingers, complicated WITHOUT FB Medication List Medication Instructions Start Date Stop Date Generic Name ND Status Provider Patient Instruction ENDOCET 5-325 MG ORAL TABLET 1 every 6 hr prn OXYCODONE-ACETAMINOPHEN 07473016394 No Longer Active Stephanie Augustinum HUSSEIN Active BENZONATATE 100 MG ORAL CAPSULE 1 cap as needed 3x aday BENZONATATE 61890773130 No Longer Active Stephanie Yokum AUTOMOTIVE SPECIALTY TECHNICIAN Active AUGMENTIN 875-125 MG ORAL TABLET 1 tab every 12 hrs stop 08-11-16 AMOXICILLIN-POT CLAVULANATE 96039483480 No Longer Active Stephanie Yoladonnaum AUTOMOTIVE SPECIALTY TECHNICIAN Active CYCLOBENZAPRINE HCL 10 MG ORAL TABLET 1 tab TID CYCLOBENZAPRINE HCL 59235367374 No Longer Active Roman Toledo MD Active CYCLOBENZAPRINE HCL 10 MG ORAL TABLET 1 tab TID CYCLOBENZAPRINE HCL 10 MG ORAL TABLET 225721 CYCLOBENZAPRINE HCL Inactive AUGMENTIN 875-125 MG ORAL TABLET 1 tab every 12 hrs stop 08-11-16 AUGMENTIN 875-125 MG ORAL TABLET 146588 AMOXICILLIN-POT CLAVULANATE Inactive BENZONATATE 100 MG ORAL CAPSULE 1 cap as needed 3x aday BENZONATATE 100 MG ORAL CAPSULE 907009 BENZONATATE Inactive ENDOCET 5-325 MG ORAL TABLET 1 every 6 hr prn ENDOCET 5-325 MG ORAL TABLET 4510875 OXYCODONE-ACETAMINOPHEN Inactive Vital Signs Date Name Value [...] mg/dL Encounters Code Encounter Date Provider Facility CPT-13474 Level 3 New Patient 17:10:13 ROUTER SETTER Roman Toledo MD [facility] Procedures Code Procedure Name Date Entry Date Standard Description CPT-LAC Laceration 11:23:18 ROUTER SETTER CPT-27482 First Vx - Ix admin via ID IM or jet injects without counseling by physician 11:16:37 ROUTER SETTER CPT-27233 Boostrix Intramuscular Suspension 5-2.5-18.5 11:16:37 ROUTER SETTER
--- OUTSIDE RECORDS SUMMARY | 2018-10-17 18:54 | XMS REPORT | Clinical Summary ---
Author Author Admin, [facility] Organization [facility] Address Unknown Phone Unavailable Allergies, Adverse Reactions, Alerts Allergy Name Reaction Description Start Date Severity Status Provider Allergies Unknown Conditions or Problems Problem Name Problem Code Onset Date Status Entry Date Provider Comment Standard Description Annotate Problems Unknown Active Medication List Medication Instructions Start Date Stop Date Generic Name NDC Status Provider Patient Instruction Drug Treatment Unknown - unknown
--- OUTSIDE RECORDS SUMMARY | 2018-10-17 18:54 | XMS REPORT ---
Author Author Migration, Doctor Organization [facility] Address Unknown Phone Unavailable Care Team Providers Care Paper Cleaner Name Role Phone Migration, Doctor Unavailable Unavailable PROBLEMS Type Condition ICD9-CM Code [id number] Code Onset Dates Condition Status SNOMED Code Problem Acute bronchitis 466.0 Active 78147143 Problem Smoking addiction F17.200 Active 033256514 Problem Counseling on substance use and abuse V65.42 Active 476823208 Problem Cervicalgia 723.1 Active 32044711 Problem Lumbago 724.2 Active 956825423 ALLERGIES No Information ENCOUNTERS Encounter Location Date Diagnosis [facility] [address] [place] [phone] Dec, Cervical radicular pain M54.12 and Cough R05 [facility] [address] [place] [phone] November, BP check Z01.30 [facility] [address] [place] [phone] November, [facility] [address] [place] [phone] Aug, [facility] [address] [place] [phone] Aug, Mass of left axilla R22.32 [facility] [address] [place] [phone] Aug, Axillary mass, left R22.32 [facility] [address] [facility] [id number] [address] Jul, [facility] [address] [place] [phone] Jul, Mass of left axilla R22.32 and Lymphadenopathy R59.1 [facility] [address] [place] [address] Jul, [facility] [address] [place] [phone] Jul, [facility] [address] [place] [phone] Jul, [facility] [address] [address] Jul, [facility] [address] [place] [address] Jul, Smoking addiction F17.200 and Lymphadenopathy R59.1 [facility] [address] [place] [phone] Jul, Breast lump N63 ; Encounter for screening mammogram for malignant neoplasm of breast Z12.31 and Mass of left axilla R22.[address] [place] [phone] 14 Oct, 2014 [place] [id number] [place] [phone] Oct, [facility] [address] [address] Jul, [address] [place] [phone] Jul, [facility] [address] [address] Jan, [address] [address] Jan, [facility] [address] [place] [phone] Mar, IMMUNIZATIONS No Known Immunizations SOCIAL HISTORY Never Assessed REASON FOR VISIT [facility] PLAN OF CARE VITAL SIGNS MEDICATIONS Medication Instructions Dosage Frequency Start Date End Date Duration Status cyclobenzaprine 10 mg 1 tablet 3 times per day PRN muscle spasm Jul Active PredniSONE 10 mg 1 Tablet 2 times per day for 5 days Take at 8 am and noon. Do not take after 3 pm Jan, Active Doxycycline Hyclate 100 mg 1 tablet by Oral route 2 times per day for 10 days Jan, Active RESULTS No Results PROCEDURES No Known procedures INSTRUCTIONS MEDICATIONS ADMINISTERED No Known Medications MEDICAL (GENERAL) HISTORY Type Description Date Medical History Infected boil Surgical History hysterectomy 2009 Surgical History boil excision Hospitalization History Surgeries
--- OUTSIDE RECORDS SUMMARY | 2018-10-17 18:54 | XMS REPORT | Clinical Summary ---
Author Author Admin, E Organization [employer] Address Unknown Phone Unavailable Allergies, Adverse Reactions, Alerts Allergy Name Reaction Description Start Date Severity Status Provider HYDROCODONE Critical Active Stephanie Yoladonnaum MANAGING SUPERVISOR NKDA Mild No Longer Active Stephanie Coltladonnaum MANAGING SUPERVISOR NKDA Critical No Longer Active Tressa Sood RN NKDA UNK Inactive Melissa Sher RN Conditions or Problems Problem Name Problem Code Onset Date Status Entry Date Provider Comment Standard Description Annotate Axillary acute lymphangitis, left 682.3 Active Roman Toledo MD Cellulitis and abscess of upper arm and forearm BMI 24-24.9 Active Stephanie Augustinum MANAGING SUPERVISOR Body Mass Index between 19-24, adult Laceration with foreign body of right index finger with damage to nail, initial encounter 883.1 Active Stephanie Castro APRN Open wound of fingers, complicated WITHOUT FB Medication List Medication Instructions Start Date Stop Date Generic Name ND Status Provider Patient Instruction ENDOCET 5-325 MG ORAL TABLET 1 every 6 hr prn OXYCODONE-ACETAMINOPHEN 89679517432 No Longer Active Stephanie Augustinum HUSSEIN Active BENZONATATE 100 MG ORAL CAPSULE 1 cap as needed 3x aday BENZONATATE 89598596721 No Longer Active Stephanie Yokum MANAGING SUPERVISOR Active AUGMENTIN 875-125 MG ORAL TABLET 1 tab every 12 hrs stop 08-11-16 AMOXICILLIN-POT CLAVULANATE 46790632070 No Longer Active Stephanie Yoladonnaum MANAGING SUPERVISOR Active CYCLOBENZAPRINE HCL 10 MG ORAL TABLET 1 tab TID CYCLOBENZAPRINE HCL 67859760013 No Longer Active Roman Toledo MD Active CYCLOBENZAPRINE HCL 10 MG ORAL TABLET 1 tab TID CYCLOBENZAPRINE HCL 10 MG ORAL TABLET 215013 CYCLOBENZAPRINE HCL Inactive AUGMENTIN 875-125 MG ORAL TABLET 1 tab every 12 hrs stop 08-11-16 AUGMENTIN 875-125 MG ORAL TABLET 354252 AMOXICILLIN-POT CLAVULANATE Inactive BENZONATATE 100 MG ORAL CAPSULE 1 cap as needed 3x aday BENZONATATE 100 MG ORAL CAPSULE 936291 BENZONATATE Inactive ENDOCET 5-325 MG ORAL TABLET 1 every 6 hr prn ENDOCET 5-325 MG ORAL TABLET 4215151 OXYCODONE-ACETAMINOPHEN Inactive Vital Signs Date Name Value [...] mg/dL Encounters Code Encounter Date Provider Facility CPT-98271 Level 3 New Patient 17:10:13 TRANSPORT AIDE Roman Toledo MD [facility] Procedures Code Procedure Name Date Entry Date Standard Description CPT-LAC Laceration 11:23:18 TRANSPORT AIDE CPT-12911 First Vx - Ix admin via ID IM or jet injects without counseling by physician 11:16:37 TRANSPORT AIDE CPT-68137 Boostrix Intramuscular Suspension 5-2.5-18.5 11:16:37 TRANSPORT AIDE
--- OUTSIDE RECORDS SUMMARY | 2018-10-17 18:54 | XMS REPORT | Clinical Summary ---
Author Author Admin, PATSY Organization [employer] Address Unknown Phone Unavailable Allergies, Adverse Reactions, [...] 1 every 6 hr prn OXYCODONE- ACETAMINOPHEN 57624518089 Active Roman Toledo MD Active CYCLOBENZAPRINE HCL 10 MG ORAL TABS 1 tab TID CYCLOBENZAPRINE HCL 89733655683 No Longer Active Roman Toledo MD Active AUGMENTIN 875-125 MG ORAL TABS 1 tab every 12 hrs stop 08-11-16 AMOXICILLIN-POT CLAVULANATE 49877952733 Active Tressa Sood RN Active BENZONATATE 100 MG ORAL CAPS 1 cap as needed 3x aday BENZONATATE 00641072274 Active Tressa Sood RN Active CYCLOBENZAPRINE HCL 10 MG ORAL TABS 1 tab TID CYCLOBENZAPRINE HCL 10 MG ORAL TABS 854408 CYCLOBENZAPRINE HCL Inactive Vital Signs Date Name Value Unit Range Description blood pressure, diastolic - 8462-4 62 mm[Hg] BP roca blood pressure, systolic - 8480-6 119 mm[Hg] BP sys height E&M - 8302-2 65 [in_us] Bdy height pulse rate E&M - 8867-4 93 /min Heart rate temperature E&M 98.2 [degF] Body temperature weight E&M - 3141-9 124.5 [lb_av] Weight Measured Encounters Code Encounter Date Provider Facility CPT-41089 Level 3 New Patient 17:10:13 EDUCATIONAL ADVISOR Roman Toledo MD [facility]
--- OUTSIDE RECORDS SUMMARY | 2018-10-17 18:54 | XMS REPORT | Clinical Summary ---
Author Author Admin, Bridgette Organization [facility] Address Unknown Phone Unavailable Allergies, [...] 1 every 6 hr prn OXYCODONE- ACETAMINOPHEN 44787846015 Active Roman Toledo MD Active CYCLOBENZAPRINE HCL 10 MG ORAL TABS 1 tab TID CYCLOBENZAPRINE HCL 84106193882 No Longer Active Roman Toledo MD Active AUGMENTIN 875-125 MG ORAL TABS 1 tab every 12 hrs stop 08-11-16 AMOXICILLIN-POT CLAVULANATE 96518493825 Active Tressa Sood RN Active BENZONATATE 100 MG ORAL CAPS 1 cap as needed 3x aday BENZONATATE 64762249328 Active Tressa Sood RN Active CYCLOBENZAPRINE HCL 10 MG ORAL TABS 1 tab TID CYCLOBENZAPRINE HCL 10 MG ORAL TABS 278968 CYCLOBENZAPRINE HCL Inactive Encounters Code Encounter Date Provider Facility CPT-70276 Level 3 New Patient 17:10:13 METAL FLOORING INSTALLER Roman Toledo MD [facility]
--- OUTSIDE RECORDS SUMMARY | 2018-10-17 18:55 | XMS REPORT ---
Author [facility] Address [address] [place] [address] Care Team Providers Care National Sales Manager Name Role Phone CEJA JUSTUS Unavailable PROBLEMS Type Condition ICD9-CM Code GSN13-CU Code Onset Dates Condition Status SNOMED Code Problem Smoking addiction F17.200 Active 213279215 Problem Acute bronchitis 466.0 Active 39069439 Problem Counseling on substance use and abuse V65.42 Active 417934082 Problem Lumbago 724.2 Active 791487805 Problem Cervicalgia 723.1 Active 40774650 ALLERGIES Substance Reaction Event Type Date Status N.K.D.A. Unknown Non Drug Allergy Jul, Unknown SOCIAL HISTORY No smoking Hx information available PLAN OF CARE Activity Details Follow Up prn,After mammogram Reason: VITAL SIGNS Height 66 in 2016-07-16 Weight 127.3 lbs 2016-07-16 Temperature 98.6 degrees Fahrenheit 2016-07-16 Heart Rate 100 bpm 2016-07-16 Respiratory Rate 20 2016-07-16 BMI 20.54 kg/m2 2016-07-16 Blood pressure systolic 102 mmHg 2016-07-16 Blood pressure diastolic 70 mmHg 2016-07-16 MEDICATIONS Medication Instructions Dosage Frequency Start Date End Date Duration Status Cyclobenzaprine HCl 10 MG Orally Three times a day 1 tablet 8h Active Benzonatate 100 MG Orally Three times a day 1 capsule as needed 8h Active RESULTS Name Result Date Reference Range Mammogram Dx, Bilateral 2016-07-29 PROCEDURES Procedure Date Ordered Related Diagnosis Body Site Preventive Care Est Pt. Age 40-64 Jul 16, 2016 IMMUNIZATIONS No Known Immunizations
--- OUTSIDE RECORDS SUMMARY | 2018-10-17 18:55 | XMS REPORT ---
Author Author JENNIFER HOOVER [facility] Address [address] [place] [address] Care Team Providers Care Sole Stapler Welt Name Role Phone JENNIFER HOOVER Unavailable PROBLEMS Type Condition ICD9-CM Code ATS69-KE Code Onset Dates Condition Status SNOMED Code Problem Smoking addiction F17.200 Active 766479743 Problem Acute bronchitis 466.0 Active 22306899 Problem Counseling on substance use and abuse V65.42 Active 525561455 Problem Lumbago 724.2 Active 290422443 Problem Cervicalgia 723.1 Active 53391516 ALLERGIES Substance Reaction Event Type Date Status N.K.D.A. Unknown Non Drug Allergy Aug, Unknown SOCIAL HISTORY No smoking Hx information available PLAN OF CARE Activity Details Follow Up 2 Weeks Reason: VITAL SIGNS Height 66 in 2016-08-14 Weight 122.1 lbs 2016-08-14 Temperature 100.0 degrees Fahrenheit 2016-08-14 Heart Rate 98 bpm 2016-08-14 Respiratory Rate 16 2016-08-14 BMI 19.71 kg/m2 2016-08-14 Blood pressure systolic 122 mmHg 2016-08-14 Blood pressure diastolic 76 mmHg 2016-08-14 MEDICATIONS Medication Instructions Dosage Frequency Start Date End Date Duration Status Cyclobenzaprine HCl 10 MG Orally Three times a day 1 tablet 8h Active Dilaudid 2 MG Orally every 4-6 hours as needed 1 tablet as needed Aug Active Benzonatate 100 MG Orally Three times a day 1 capsule as needed 8h Active RESULTS No Results PROCEDURES Procedure Date Ordered Related Diagnosis Body Site Office Visit, Est Pt., Level 3 Aug 14, 2016 IMMUNIZATIONS No Known Immunizations
--- OUTSIDE RECORDS SUMMARY | 2018-10-17 18:55 | XMS REPORT ---
Author Author MAXINE ALFREDO Organization [address] Address [address] [place] [address] Care Team Providers Care Closing Specialist Name Role Phone MAXINE ALFREDO Unavailable PROBLEMS Type Condition ICD9-CM Code QSM85-YK Code Onset Dates Condition Status SNOMED Code Problem Smoking addiction F17.200 Active 247311994 Problem Acute bronchitis 466.0 Active 63921487 Problem Counseling on substance use and abuse V65.42 Active 996929222 Problem Lumbago 724.2 Active 888742135 Problem Cervicalgia 723.1 Active 45115546 ALLERGIES No Information ENCOUNTERS Encounter Location Date Diagnosis [address] [address] Dec, Cervical radicular pain M54.12 and Cough R05 [address] [address] November, BP check Z01.[address] [address] November, [address] [address] Aug, [address] [address] Aug, Mass of left axilla R22.[address] [address] Aug, Axillary mass , left R22.32 [facility] [address] [facility] [id number] [address] Jul, [address] [address] Jul, Mass of left axilla R22.32 and Lymphadenopathy R59.[address] [address] Jul, [address] [address] Jul, [address] [address] Jul, [address] [address] Jul, [address] [address] Jul, Smoking addiction F17.200 and Lymphadenopathy R59.[address] [address] Jul, Breast lump N63 ; Encounter for screening mammogram for malignant neoplasm of breast Z12.31 and Mass of left axilla R22.32 [address] [address] Oct, [address] [place] [address] Oct, [address] [address] Jul, [address] [address] Jul, [address] [address] Jan, [address] [address] Jan, [address] [address] Mar, IMMUNIZATIONS No Known Immunizations SOCIAL HISTORY Never Assessed REASON FOR VISIT Numbness in left arm............................lwileyrn PLAN OF CARE VITAL SIGNS MEDICATIONS Unknown Medications RESULTS No Results PROCEDURES No Known procedures INSTRUCTIONS MEDICATIONS ADMINISTERED No Known Medications MEDICAL (GENERAL) HISTORY Type Description Date Medical History Infected boil Surgical History hysterectomy 2009 Surgical History boil excision Hospitalization History Surgeries
--- OUTSIDE RECORDS SUMMARY | 2018-10-17 18:55 | XMS REPORT ---
Author Author RONY POST [address] Address [address] [place] [address] Care Team Providers Care Pulmonologist Intensivist Name Role Phone RONY POST Unavailable PROBLEMS Type Condition ICD9-CM Code KAL17-UP Code Onset Dates Condition Status SNOMED Code Problem Smoking addiction F17.200 Active 154438274 Problem Acute bronchitis 466.0 Active 89271259 Problem Counseling on substance use and abuse V65.42 Active 970085408 Problem Lumbago 724.2 Active 988411537 Problem Cervicalgia 723.1 Active 51879515 ALLERGIES Substance Reaction Event Type Date Status Oxycodone-Acetaminophen nausea Drug Allergy Dec, Active Hydrocodone-Acetaminophen nausea Drug Allergy Dec, Active ENCOUNTERS Encounter Location Date Diagnosis [address] [address] Dec, Cervical radicular pain M54.12 and Cough R05 [address] [address] November, BP check Z01.[address] [address] November, [address] [address] Aug, [address] [address] Aug, Mass of left axilla R22.[address] [address] Aug, Axillary mass , left R22.32 [facility] [address] [facility] [id number] [place] [address] Jul, [address] [address] Jul, Mass of left axilla R22.32 and Lymphadenopathy R59.[address] [address] Jul, [address] [address] Jul, [address] [address] Jul, [address] [address] Jul, [address] [address] Jul, Smoking addiction F17.200 and Lymphadenopathy R59.[address] [address] Jul, Breast lump N63 ; Encounter for screening mammogram for malignant neoplasm of breast Z12.31 and Mass of left axilla R22.32 [place] [place] [id number] [place] [address] Oct, [place] [id number] [place] [address] Oct, [address] [address] Jul, [place] [id number] [place] [address] [address] Jul, [address] [address] Jan, [place] [id number] [place] [address] Jan, [address] [address] Mar, IMMUNIZATIONS No Known Immunizations SOCIAL HISTORY Never Assessed REASON FOR VISIT Establish Care; multiple concerns,......................................lwileyrn PLAN OF CARE Activity Details Follow Up 3 months or as indicated by lab Reason: VITAL SIGNS Height 66 in 2018-01-01 Weight 136.8 lbs 2018-01-01 Temperature 98.4 degrees Fahrenheit 2018-01-01 Heart Rate 64 bpm 2018-01-01 Respiratory Rate 16 2018-01-01 BMI 22.08 kg/m2 2018-01-01 Blood pressure systolic 126 mmHg 2018-01-01 Blood pressure diastolic 74 mmHg 2018-01-01 MEDICATIONS Medication Instructions Dosage Frequency Start Date End Date Duration Status PredniSONE 20 mg Orally Once a day 2 x 3 days, 1 x3 days, 1/2 x 4 days 24h 10 days Active RESULTS No Results PROCEDURES No Known procedures INSTRUCTIONS MEDICATIONS ADMINISTERED No Known Medications MEDICAL (GENERAL) HISTORY Type Description Date Medical History Infected boil Surgical History hysterectomy 2009 Surgical History boil excision Hospitalization History Surgeries
--- OUTSIDE RECORDS SUMMARY | 2018-10-17 18:55 | XMS REPORT ---
Author Author ANGEL LEONARDO [facility] Address [address] [place] [address] Care Team Providers Care Acquisition Manager Name Role Phone ANGEL LEONARDO Unavailable PROBLEMS Type Condition ICD9-CM Code KKA84-KF Code Onset Dates Condition Status SNOMED Code Problem Smoking addiction F17.200 Active 083912027 Problem Acute bronchitis 466.0 Active 26264994 Problem Counseling on substance use and abuse V65.42 Active 379930024 Problem Lumbago 724.2 Active 976892008 Problem Cervicalgia 723.1 Active 79661180 ALLERGIES Unknown Allergies SOCIAL HISTORY No smoking Hx information available PLAN OF CARE VITAL SIGNS MEDICATIONS Unknown Medications RESULTS No Results PROCEDURES No Known procedures IMMUNIZATIONS No Known Immunizations
--- OUTSIDE RECORDS SUMMARY | 2018-10-17 18:55 | XMS REPORT ---
Author Author JUSTUS CEJA [facility] Address [address] [place] [address] Care Team Providers Care Hat Renovator Name Role Phone JUSTUS CEJA Unavailable PROBLEMS Type Condition ICD9-CM Code INE93-RQ Code Onset Dates Condition Status SNOMED Code Problem Smoking addiction F17.200 Active 992914412 Problem Acute bronchitis 466.0 Active 60292849 Problem Counseling on substance use and abuse V65.42 Active 317007001 Problem Lumbago 724.2 Active 578059253 Problem Cervicalgia 723.1 Active 02711163 ALLERGIES No Information SOCIAL HISTORY Never Assessed PLAN OF CARE VITAL SIGNS MEDICATIONS Unknown Medications RESULTS No Results PROCEDURES No Known procedures IMMUNIZATIONS No Known Immunizations MEDICAL (GENERAL) HISTORY Type Description Date Medical History Infected boil Surgical History hysterectomy 2010 Surgical History boil excision Hospitalization History Surgeries
--- OUTSIDE RECORDS SUMMARY | 2018-10-17 18:55 | XMS REPORT ---
Author Author JUSTUS CEJA [address] Address [address] [place] [address] Care Team Providers Care Curtain Cutter Hand Name Role Phone JUSTUS CEJA Unavailable PROBLEMS Type Condition ICD9-CM Code UYP38-NA Code Onset Dates Condition Status SNOMED Code Problem Smoking addiction F17.200 Active 776762018 Problem Acute bronchitis 466.0 Active 95806253 Problem Counseling on substance use and abuse V65.42 Active 462014051 Problem Lumbago 724.2 Active 943223972 Problem Cervicalgia 723.1 Active 58448067 ALLERGIES No Information ENCOUNTERS Encounter Location Date Diagnosis [address] [address] Dec, Cervical radicular pain M54.12 and Cough R05 [address] [address] November, BP check Z01.[address] [address] November, [address] [address] Aug, [address] [address] Aug, Mass of left axilla R22.[address] [address] Aug, Axillary mass , left R22.32 [facility] [address] [facility] [id number] [address] Jul, [address] [address] Jul, Mass of left axilla R22.32 and Lymphadenopathy R59.[address] [address] Jul, [address] [address] Jul, [address] [address] Jul, [address] [address] Jul, [address] [address] Jul, Smoking addiction F17.200 and Lymphadenopathy R59.[address] [address] Jul, Breast lump N63 ; Encounter for screening mammogram for malignant neoplasm of breast Z12.31 and Mass of left axilla R22.32 [address] [address] Oct, [address] [address] Oct, [address] [address] Jul, [place] [id number] [address] Jul, [address] [address] Jan, [place] [id number] [address] Jan, [address] [address] Mar, IMMUNIZATIONS No Known Immunizations SOCIAL HISTORY Never Assessed REASON FOR VISIT PLAN OF CARE VITAL SIGNS MEDICATIONS Unknown Medications RESULTS No Results PROCEDURES No Known procedures INSTRUCTIONS MEDICATIONS ADMINISTERED No Known Medications MEDICAL (GENERAL) HISTORY Type Description Date Medical History Infected boil Surgical History hysterectomy 2010 Surgical History boil excision Hospitalization History Surgeries
--- OUTSIDE RECORDS SUMMARY | 2018-10-17 18:55 | XMS REPORT ---
Author Author [facility] Address [address] [place] [address] Care Team Providers Care Senior Physician Name Role Phone JUSTUS CEJA Unavailable PROBLEMS Type Condition ICD9-CM Code HDJ59-TK Code Onset Dates Condition Status SNOMED Code Problem Smoking addiction F17.200 Active 078752431 Problem Acute bronchitis 466.0 Active 38933218 Problem Counseling on substance use and abuse V65.42 Active 895075214 Problem Lumbago 724.2 Active 384018663 Problem Cervicalgia 723.1 Active 97089743 ALLERGIES Unknown Allergies SOCIAL HISTORY No smoking Hx information available PLAN OF CARE Activity Details Follow Up prn Reason: VITAL SIGNS MEDICATIONS Unknown Medications RESULTS Name Result Date Reference Range CBC 2016-07-17 WBC 8.7 3.4-10.8 RBC 3.73 3.77-5.28 Hemoglobin 12.1 11.1-15.9 Hematocrit 35.5 34.0-46.6 MCV 95 79-97 MCH 32.4 26.6-33.0 MCHC 34.1 31.5-35.7 RDW 13.3 12.3-15.4 Platelets 266 150-379 Neutrophils 59 Lymphs 27 Monocytes 11 Eos 2 Basos 1 Immature Cells Neutrophils (Absolute) 5.2 1.4-7.0 Lymphs (Absolute) 2.3 0.7-3.1 Monocytes(Absolute) 1.0 0.1-0.9 Eos (Absolute) 0.1 0.0-0.4 Baso (Absolute) 0.1 0.0-0.2 Immature Granulocytes 0 Immature Grans (Abs) 0.0 0.0-0.1 NRBC Hematology Comments: Xray : Chest (IN HOUSE) 2016-07-17 PROCEDURES Procedure Date Ordered Related Diagnosis Body Site CHEST X-RAY Jul 17, 2016 COMPLETE CBC W/AUTO DIFF WBC Jul 17, 2016 VENIPUNCT, ROUTINE* Jul 17, 2016 IMMUNIZATIONS No Known Immunizations
--- OUTSIDE RECORDS SUMMARY | 2018-10-17 18:55 | XMS REPORT | Continuity of Care Document ---
Author Organization Unknown Address Unknown Allergies Active Description Code Type Severity Reaction Onset Reported/Identified Relationship to Patient Clinical Status Yes HYDROcodone Drug N/A N/A Yes Percocet 5/325 Drug N/A N/A Medications There is no data. Problems Date Dx Coded Attending Type Code Diagnosis Diagnosed By 03/30/2013 NEDA HALL DO 724.2 LUMBAGO/ LOW BACK PAIN 03/30/2013 NEDA HALL DO 724.2 LUMBAGO/ LOW BACK PAIN 03/30/2013 JENNIFER HOOVER MD 724.2 LUMBAGO/ LOW BACK PAIN 02/08/2014 NEDA HALL DO 466.0 BRONCHITIS, ACUTE 02/08/2014 NEDA HALL DO V65.42 COUNSELING - SMOKING CESSATION 02/08/2014 JENNIFER HOOVER MD 466.0 BRONCHITIS, ACUTE 02/08/2014 JENNIFER HOOVER MD V65.42 COUNSELING - SMOKING CESSATION 07/26/2014 JENNIFER HOOVER MD 723.1 CERVICALGIA 09/03/2018 James Elizondo MD S61.320A Laceration with foreign body of right index finger with damage to nail, initial encounter 09/03/2018 James Elizondo MD Z68.24 BMI 24-24.9 09/16/2018 James Elizondo MD Z48.02 Encounter for removal of sutures Procedures There is no data. Results There is no data. Encounters ACCT No. Visit Date/Time Discharge Status Pt. Type Provider Facility Loc./Unit Complaint [id number] 07/26/2014 12:51:00 07/26/2014 23:59:59 [facility] Outpatient JENNIFER HOOVER MD [id number] 02/08/2014 13:32:00 02/08/2014 23:59:59 CLS Outpatient NEDA HALL DO [id number] 03/30/2013 13:55:00 03/30/2013 23:59:59 [facility] [place] [id number] 01/01/2018 15:00:00 01/01/2018 23:59:59 CLS Outpatient BRENDA CEJA [facility] [id number] 08/15/2016 09:08:14 08/15/2016 23:59:00 DIS Outpatient [facility] LEIGH Surgery excision of lesion [id number] 08/14/2016 09:43:26 08/14/2016 23:59:59 CLS Outpatient [facility] LEIGH RAD left breast axillary region, area of hypoechoic change and the inflammatory present of lymph nodes [id number] 07/29/2016 08:42:26 07/29/2016 23:59:59 CLS Outpatient Brenda Ceja [facility] LEIGH RAD edw diagnostic [id number] 2018 16:08:00 ACT Unknown Mikhail STORM, James
[2018-10-17] MEDS ORDERED: PANTOPRAZOLE 40 MG (PROTONIX) VIAL IV ONE (20:00)
[2018-10-17] MEDS ORDERED: NS IV 1000 ML 1,000 ML IV SCH (20:00)
[2018-10-17] MEDS ORDERED: KETOROLAC 30 MG/ML VIAL IVP ONE (20:00)
--- NOTE | 2018-10-17 20:03 | ED Abdominal Pain ---
General Chief Complaint: Abdominal/GI Problems Stated Complaint: PAINFUL KNOT IN THE MIDDLE OF STOMACH AREA Nursing Triage Note: Has had a "knot" in epigastric area for several months that is intermittently painful. Has had increased pain for the past 4 days. Pain is worse after eating and laying down. Has taken ibuprofen but has not helped with the pain. Has not seen a Dr previously about her stomach issues. Sepsis Screen: No Definite Risk Source of Information: Patient History of Present Illness Date Seen by Provider: Oct 17, 2018 Time Seen by Provider: 19:30 Initial Comments 53-year-old female presenting with epigastric abdominal pain that has been present for the last several weeks to months. She said that it's been intermittent until the last few days. In the last 3-4 days that has been constant. She states that the pain is worse when she eats or drinks something. She feels bloated sensation and sharp pain. She denies having the pain move anywhere. There is no burning sensation. She has had previous abdominal surgery with a hysterectomy and oophorectomy several years ago for heavy bleeding. She denies having any other abdominal surgeries. She also denies having any fever or chills. She did have an episode of vomiting earlier today. Her last dose of ibuprofen was yesterday. She felt like it was not helping so she has not taken anymore. She denies any change in her bowels or bladder. She's had no blood or dark tarry stools Allergies and Home Medications Allergies Coded Allergies: No Known Drug Allergies (Unverified , 10/17/18) Home Medications Hydrocodone Bit/Acetaminophen 1 Tab Tab, 1 EACH PO Q6H PRN for severe pain Prescribed by: TIGIST PALACIOS on 10/17/182203 Naproxen 500 Mg Tablet, 500 MG PO BID PRN for PAIN-MILD TO MODERATE Prescribed by: TIGIST OAKESYART on 10/17/182203 Ondansetron 4 Mg Tab.rapdis, 4 MG PO Q6H PRN for NAUSEA/VOMITING Prescribed by: TIGIST DE LA TORRERT on 10/17/182203 Pantoprazole Sodium 20 Mg Tablet.dr, 20 MG PO DAILY Prescribed by: TIGIST Angeles ENYART on 10/17/182203 Patient Home Medication List Home Medication List Reviewed: Yes Review of Systems Review of Systems Constitutional: No chills, No fever EENTM: No Symptoms Reported Respiratory: No Symptoms Reported Cardiovascular: No Symptoms Reported Gastrointestinal: See HPI Genitourinary: Denies Burning, Denies Frequency, Denies Flank Pain, Denies Hematuria, Denies Pain, Denies Urgency Musculoskeletal: no symptoms reported Skin: no symptoms reported Psychiatric/Neurological: No Symptoms Reported Past Lirbikm-Nqhgpp-Shyawi Hx Past Med/Social Hx: Reviewed Nursing Past Med/Soc Hx Patient Social History Alcohol Use: Denies Use Recreational Drug Use: No Smoking Status: Current Someday Smoker Recent Foreign Travel: No Contact w/Someone Who Travel: No Recent Infectious Disease Expo: No Physical Abuse: No Sexual Abuse: No Mistreated: No Past Medical History Hysterectomy Respiratory: No Cardiac: No Neurological: No 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 oz. 63.581436zu; BMI Method:Stated General Appearance: WD/WN, no apparent distress HEENT: PERRL/EOMI, normal ENT inspection, pharynx normal Neck: supple Respiratory: chest non-tender, lungs clear, normal breath sounds, no respiratory distress, no accessory muscle use Cardiovascular: normal peripheral pulses, regular rate, rhythm Gastrointestinal: normal bowel sounds, soft, no organomegaly, no pulsatile mass ; No guarding, No rebound; tenderness (epigastric) Rectal: deferred Extremities: normal range of motion, non-tender, normal inspection Neurologic/Psychiatric: alert, normal mood/affect, oriented x 3 Skin: normal color, warm/dry Progress/Results/Core Measures Results/Orders Lab Results Laboratory Tests Test 10/17/18 20:05 10/17/18 20:14 Range/Units White Blood Count 6.5 4.3-11.0 10^3/uL Red Blood Count 4.18 L 4.35-5.85 10^6/uL Hemoglobin 13.4 11.5-16.0 G/DL Hematocrit 41 35-52 % Mean Corpuscular Volume 97 80-99 FL Mean Corpuscular Hemoglobin 32 25-34 PG Mean Corpuscular Hemoglobin Concent 33 32-36 G/DL Red Cell Distribution Width 13.0 10.0-14.5 % Platelet Count 229 130-400 10^3/uL Mean Platelet Volume 10.6 H 7.4-10.4 FL Neutrophils (%) (Auto) 45 42-75 % Lymphocytes (%) (Auto) 42 12-44 % Monocytes (%) (Auto) 9 0-12 % Eosinophils (%) (Auto) 3 0-10 % Basophils (%) (Auto) 1 0-10 % Neutrophils # (Auto) 2.9 1.8-7.8 X 10^3 Lymphocytes # (Auto) 2.7 1.0-4.0 X 10^3 Monocytes # (Auto) 0.6 0.0-1.0 X 10^3 Eosinophils # (Auto) 0.2 0.0-0.3 10^3/uL Basophils # (Auto) 0.1 0.0-0.1 10^3/uL Sodium Level 142 135-145 MMOL/L Potassium Level 3.8 3.6-5.0 MMOL/L Chloride Level 104 98-107 MMOL/L Carbon Dioxide Level 26 21-32 MMOL/L Anion Gap 12 5-14 MMOL/L Blood Urea Nitrogen 12 7-18 MG/DL Creatinine 0.75 0.60-1.30 MG/DL Estimat Glomerular Filtration Rate > 60 BUN/Creatinine Ratio 16 Glucose Level 104 70-105 MG/DL Calcium Level 8.8 8.5-10.1 MG/DL Corrected Calcium 8.9 8.5-10.1 MG/DL Total Bilirubin 0.2 0.1-1.0 MG/DL Aspartate Amino Transf (AST/SGOT) 15 5-34 U/L Alanine Aminotransferase (ALT/SGPT) 10 0-55 U/L Alkaline Phosphatase 67 40-136 U/L Total Protein 6.3 L 6.4-8.2 GM/DL Albumin 3.9 3.2-4.5 GM/DL Lipase 40 8-78 U/L Urine Color YELLOW Urine Clarity CLEAR Urine pH 8.0 5-9 Urine Specific [place] 1.010 L 1.016-1.022 Urine Protein NEGATIVE NEGATIVE Urine Glucose (UA) NEGATIVE NEGATIVE Urine Ketones NEGATIVE NEGATIVE Urine Nitrite NEGATIVE NEGATIVE Urine Bilirubin NEGATIVE NEGATIVE Urine Urobilinogen 0.2 NORMAL MG/DL Urine Leukocyte Esterase NEGATIVE NEGATIVE Urine RBC (Auto) NEGATIVE NEGATIVE Urine RBC NONE /HPF Urine WBC 0-2 /HPF Urine Squamous Epithelial Cells 5-10 /HPF Urine Crystals NONE /LPF Urine Bacteria NEGATIVE /HPF Urine Casts NONE /LPF Urine Mucus NONE /LPF Urine Culture Indicated NO My Orders Orders - TIGIST PALACIOS MD Comprehensive Metabolic Panel (10/17/18 20:00) Lipase (10/17/18 20:00) Ua Culture If Indicated (10/17/18 20:00) Saline Lock/Iv-Start (10/17/18 20:00) Cbc With Automated Diff (10/17/18 20:00) Ct Abdomen/Pelvis W (10/17/18 20:00) Ns Iv 1000 Ml (Sodium Chloride 0.9%) (10/17/18 20:00) Pantoprazole Injection (Protonix Injecti (10/17/18 20:00) Ketorolac Injection (Toradol Injection) (10/17/18 20:00) Iohexol Injection (Omnipaque 350 Mg/Ml 1 (10/17/18 20:15) Received Contrast (Hold Metformin- Contr (10/17/18 20:15) Sodium Chloride Flush (Catheter Flush Sy (10/17/18 20:15) Ns (Ivpb) (Sodium Chloride 0.9% Ivpb Bag (10/17/18 20:15) Rx-Hydrocodone/Apap 5-325 Mg (Rx-Vicodin (10/17/18 22:08) Medications Given in ED Current Medications Medications Dose Ordered Sig/Marva Route Start Time Stop Time Status Last Admin Dose Admin Acetaminophen/ Hydrocodone Bitart 1 ea STK-MED ONCE PO 10/17/18 22:08 10/17/18 22:12 DC 10/17/18 22:40 1 EA Iohexol 100 ml ONCE ONCE IV 10/17/18 20:15 10/17/18 20:16 DC 10/17/18 20:49 100 ML Ketorolac Tromethamine 30 mg ONCE ONCE IVP 10/17/18 20:00 10/17/18 20:04 DC 10/17/18 20:34 30 MG Pantoprazole 40 mg ONCE ONCE IV 10/17/18 20:00 10/17/18 20:04 DC 10/17/18 20:33 40 MG Sodium Chloride 10 ml NEEDED PRN IV 10/17/18 20:15 10/18/18 00:18 DC 10/17/18 20:49 10 ML Sodium Chloride 50 ml ONCE ONCE IV 10/17/18 20:15 10/17/18 20:16 DC 10/17/18 20:49 50 ML Vital Signs/I&O 10/17/18 10/17/18 19:00 22:42 Temp 97.9 97.0 Pulse 85 68 Resp 20 20 B/P (MAP) 101/56 (71) 97/57 (70) Pulse Ox 85 98 O2 Delivery Room Air 10/18/18 00:00 Intake Total 1000 ml Balance 1000 ml Blood Pressure Mean: 71 Progress Progress Note #1: Progress Note Check labs and obtain CT scan of abdomen and pelvis to evaluate her epigastric abdominal pain and bloating sensation. Will give IV fluids for hydration, Toradol for pain, Protonix for her epigastric pain and possible gastritis. Will keep patient nothing by mouth until testing is back. Progress Note #2: Time: 21:30 Progress Note On recheck her labs are all ok without acute significant abnormality. Her CBC is normal without elevated WBC count, UA and Chemistry are also normal without elevation or Lipase or LFTs and normal renal function. CT report was read out as no acute process. On my review it looks like her gallbladder wall is a little thickened. Her pain was improved with treatment here in the emergency department. We'll plan on discharge with when necessary hydrocodone for severe pain, naproxen for inflammation and pain, Protonix for possible gastritis pain. Refer to surgeon and primary care doctor. I advised her that she likely still has some gallbladder issues that may need an ultrasound and/or nuclear medicine test. Since she has a PPO insurance plan she may want to go directly to the surgeon since she does not have a primary care doctor. I advised her on a low fat bland diet as well as return and follow-up precautions. Will send her with a take home pack of Hydrocodone in case she needs something for severe pain overnight until the pharmacy opens in the morning. Will also check with surgeon conflicts analyst to let them know about the patient in case they wanted anything else for follow up this week. [phone] Medina as the conflicts analyst surgeon according to my call list I have here in the ED. Dr. Medina had not returned page before patient was discharged. Will still refer to him for follow up as outpt and if he calls back later will update him about the patient and the case for outpt follow up. Diagnostic Imaging Diagonstic Imaging: CT Plain Films/CT/US/NM/MRI: abdomen, pelvis Comments NAME: MIGUELITO HERNÁNDEZ [facility] REC#: [id number] PT STATUS: REG ER : 1965 PHYSICIAN: TIGIST PALACIOS MD ADMIT DATE: 10/17/18/ER FS Draft Date of Exam:10/17/18 CT ABDOMEN/PELVIS W PROCEDURE: CT abdomen and pelvis with contrast. TECHNIQUE: Multiple contiguous axial images were obtained through the abdomen and pelvis after administration of intravenous contrast. Auto Exposure Controls were utilized during the CT exam to meet ALARA standards for radiation dose reduction. INDICATION: Palpable epigastric knot for 3 months, starting to get painful 4-5 days ago. Previous hysterectomy. FINDINGS: Palpable knot may be the tip of the patient's sternum. No abnormal masses are present. The lung bases are clear. The abdominal wall appears normal. No hernias are present. Couple of tiny hepatic cysts are present. The liver is otherwise normal. Gallbladder, spleen, pancreas, adrenal glands appear normal. Tiny renal cysts are present. Vascular structures demonstrate minimal arterial sclerosis. Urinary bladder is normal. The uterus is absent. The appendix and bowel loops appear unremarkable. There is no ascites, free air or abnormal adenopathy. The osseous structures appear normal. IMPRESSION: 1. The knot may be the tip of the patient's sternum. No other masses are present in this area. Abdominal wall appears normal. 2. There are tiny renal and hepatic cysts. 3. Mild arteriosclerosis is present. Dictated on workstation # [id number] Dict: 10/17/182058 Trans: 10/17/182105 CURTIS [id number] Interpreted by: KOKO NIXON MD Electronically signed by: Reviewed: Reviewed by Me (and reviewed report from radiologist) Departure Impression Primary Impression: Epigastric abdominal pain Additional Impressions: Postprandial abdominal bloating Nausea and vomiting in adult patient Disposition: HOME, SELF-CARE Condition: Improved Departure-Patient Inst. Decision time for Depature: 21:56 Referrals: PAPO MEDINA MD NO,LOCAL PHYSICIAN (PCP) Primary Care Physician Patient Instructions: [place] Diet, Gastritis (DC), Low Cholesterol, Saturated Fat, and Trans Fat Diet Add. Discharge Instructions: Check with clinic and surgeon to see about your abdominal pain and further testing to look at your gallbladder and possibly at the lining of your stomach. Dr. Medina is the the surgeon conflicts analyst [facility] and you may call his office number in the morning about arranging a follow up from the ER. His office number is [phone]. Follow a strict low fat and bland diet to help prevent the abdominal pain and bloating. If the pain worsens or you are having fever over 101 F or you have uncontrolled vomiting then return to the ER for repeat evaluation. All discharge instructions reviewed with patient and/or family. Voiced understanding. Scripts Ondansetron (Ondansetron Odt) 4 Mg Tab.rapdis 4 MG PO Q6H PRN for NAUSEA/VOMITING for 3 Days, #8 TAB 0 Refills Prov: TIGIST PALACIOS MD 10/17/18 Pantoprazole Sodium (Protonix) 20 Mg Tablet.dr 20 MG PO DAILY for Abdominal Pain for 30 Days, #30 TAB 0 Refills Prov: TIGIST PALACIOS MD 10/17/18 Naproxen (Naprosyn) 500 Mg Tablet 500 MG PO BID PRN for PAIN-MILD TO MODERATE for 10 Days, #20 TAB 0 Refills Prov: TIGIST PALACIOS MD 10/17/18 Hydrocodone Bit/Acetaminophen (Hydrocodone/Acetaminophen 5/325mg Tablet) 1 Tab Tab 1 EACH PO Q6H PRN for severe pain MDD 10 for 5 Days, #20 TAB 0 Refills Prov: TIGIST PALACIOS MD 10/17/18 TIGIST PALACIOS MD Oct 17, 2018 20:03
[2018-10-17 20:15] LABS: HEMATOCRIT 41 % (35-52); HEMOGLOBIN 13.4 G/DL (11.5-16.0); MEAN CORPUSCULAR HEMOGLOBIN 32 PG (25-34); MEAN CORPUSCULAR VOLUME 97 FL (80-99); WHITE BLOOD COUNT 6.5 10^3/uL (4.3-11.0)
[2018-10-17] MEDS ORDERED: HOLD METFORMIN - RECEIVED CONTRAST 20 ML VIAL IV SCH (20:15)
[2018-10-17] MEDS ORDERED: NS 50 ML (IVPB) BAG IV ONE (20:15)
[2018-10-17] MEDS ORDERED: IOHEXOL 350 MG/ML 100 ML (OMNIPAQUE 350) VIAL IV ONE (20:15)
[2018-10-17] MEDS ORDERED: CATHETER FLUSH 10 ML SYR IV PRN (20:15)
[2018-10-17 20:16] LABS: BASOPHILS # (AUTO) 0.1 10^3/uL (0.0-0.1); BASOPHILS % (AUTO) 1 % (0-10); EOSINOPHILS # (AUTO) 0.2 10^3/uL (0.0-0.3); EOSINOPHILS % (AUTO) 3 % (0-10); LYMPHOCYTES # (AUTO) 2.7 X 10^3 (1.0-4.0); LYMPHOCYTES % (AUTO) 42 % (12-44); MEAN CORPUSCULAR HGB CONC 33 G/DL (32-36); MEAN PLATELET VOLUME 10.6 FL (7.4-10.4); MONOCYTES # (AUTO) 0.6 X 10^3 (0.0-1.0); MONOCYTES % (AUTO) 9 % (0-12); NEUTROPHILS # (AUTO) 2.9 X 10^3 (1.8-7.8); NEUTROPHILS % (AUTO) 45 % (42-75); PLATELET COUNT 229 10^3/uL (130-400)
[2018-10-17 20:27] LABS: BILIRUBIN,URINE NEGATIVE (NEGATIVE); CLARITY,URINE CLEAR; COLOR,URINE YELLOW; GLUCOSE, URINE (UA) NEGATIVE (NEGATIVE); KETONES,URINE NEGATIVE (NEGATIVE); LEUKOCYTE ESTERASE ,URINE NEGATIVE (NEGATIVE); NITRITE,URINE NEGATIVE (NEGATIVE); PROTEIN,URINE NEGATIVE (NEGATIVE); UROBILINOGEN,URINE 0.2 MG/DL (NORMAL); WBC,URINE 0-2 /HPF
[2018-10-17 20:28] LABS: BACTERIA,URINE NEGATIVE /HPF
[2018-10-17 20:51] LABS: ALANINE AMINOTRANSFERASE 10 U/L (0-55); ALKALINE PHOSPHATASE 67 U/L (40-136); BILIRUBIN,TOTAL 0.2 MG/DL (0.1-1.0); BUN/CREATININE RATIO 16; CALCIUM 8.8 MG/DL (8.5-10.1); CARBON DIOXIDE 26 MMOL/L (21-32); CHLORIDE 104 MMOL/L (98-107); CREATININE SERUM 0.75 MG/DL (0.60-1.30); GFR ESTIMATED > 60; GLUCOSE 104 MG/DL (70-105); POTASSIUM 3.8 MMOL/L (3.6-5.0); SODIUM 142 MMOL/L (135-145); TOTAL PROTEIN 6.3 GM/DL (6.4-8.2)
[2018-10-17 20:52] LABS: ALBUMIN 3.9 GM/DL (3.2-4.5); LIPASE 40 U/L (8-78)
--- NOTE | 2018-10-17 21:06 | Diagnostic Imaging Report ---
PROCEDURE: CT abdomen and pelvis with contrast. TECHNIQUE: Multiple contiguous axial images were obtained through the abdomen and pelvis after administration of intravenous contrast. Auto Exposure Controls were utilized during the CT exam to meet ALARA standards for radiation dose reduction. INDICATION: Palpable epigastric knot for 3 months, starting to get painful 4-5 days ago. Previous hysterectomy. FINDINGS: Palpable knot may be the tip of the patient's sternum. No abnormal masses are present. The lung bases are clear. The abdominal wall appears normal. No hernias are present. Couple of tiny hepatic cysts are present. The liver is otherwise normal. Gallbladder, spleen, pancreas, adrenal glands appear normal. Tiny renal cysts are present. Vascular structures demonstrate minimal arterial sclerosis. Urinary bladder is normal. The uterus is absent. The appendix and bowel loops appear unremarkable. There is no ascites, free air or abnormal adenopathy. The osseous structures appear normal. IMPRESSION: 1. The knot may be the tip of the patient's sternum. No other masses are present in this area. Abdominal wall appears normal. 2. There are tiny renal and hepatic cysts. 3. Mild arteriosclerosis is present. Dictated by: Dictated on workstation # [id number]
[2018-10-17] MEDS ORDERED: PANT20TA2 PO (22:04)
[2018-10-17] MEDS ORDERED: ACHD5005 PO (22:04)
[2018-10-17] MEDS ORDERED: NAPR-1071 PO (22:04)
[2018-10-17] MEDS ORDERED: ONDA4TAB11 PO (22:04)
[2018-10-17] MEDS ORDERED: RX-HYDROCODONE/APAP 5/325 MG #4 TAB PK PO ONE (22:08)
[2018-10-17 22:42] VITALS: BP 97/57
== END 2018-10-17 22:42 | disposition home or self-care (01) ==
LOC: ER FS 18:49
DX: R10.13 Epigastric pain (principal); R14.0 Abdominal distension (gaseous); R11.2 Nausea with vomiting, unspecified; F17.200 Nicotine dependence, unspecified, uncomplicated; Z90.710 Acquired absence of both cervix and uterus
CPT/HCPCS: 36415; 74177; 80053; 81000; 83690; 85025

== ENCOUNTER → 2018-10-21 | Outpatient (CLI) | payer BC ==
[~2018-10-21] MED LIST: ACHD5005 PO; CATHETER FLUSH 10 ML SYR IV PRN; NAPR-1071 PO; ONDA4TAB11 PO; PANT20TA2 PO
--- NOTE | 2018-10-21 19:18 | Diagnostic Imaging Report ---
INDICATION: Abdominal pain. TECHNIQUE: Acquisitions were acquired of the abdomen after the administration of 5.42 mCi of technetium-99m Choletec. Ejection fraction was calculated after the patient ingested 8 ounces of Ensure. FINDINGS: There is homogeneous uptake of isotope throughout the liver. There is some significant accumulation within the gallbladder by 40 minutes. There is free flow of activity in the small bowel. Ejection fraction is calculated to be 40%. IMPRESSION: No evidence of cystic duct obstruction with lower limits of normal ejection fraction of 40% Dictated by: Dictated on workstation # [id number]
== END ==
LOC: CARD 11:49
PROVIDERS: ATTEND Nurse Practitioner Family
DX: R10.11 Right upper quadrant pain (principal)
CPT/HCPCS: 78227

== ENCOUNTER 2018-10-27 05:48 | Outpatient (CLI) | payer BC ==
[~2018-10-27] VITALS: Ht 162.6 cm; Wt 63.5 kg
[~2018-10-27 05:48] MED LIST changes: -CATHETER FLUSH 10 ML SYR IV PRN
[2018-10-28] MEDS ORDERED: HYDR-34 PO (10:36)
== END 2018-10-27 09:46 | disposition home or self-care (01) ==
LOC: PREOP 05:48
PROVIDERS: ATTEND Surgery
DX: Z01.818 Encounter for other preprocedural examination (principal)

== ENCOUNTER 2018-10-28 09:34 | Day surgery (SDC) | payer BC ==
[~2018-10-28] VITALS: Ht 162.6 cm; Wt 63.5 kg
--- OUTSIDE RECORDS SUMMARY | 2018-10-28 09:40 | XMS REPORT | Continuity of Care Document ---
Author Organization Unknown Address Unknown Allergies There is no data. Medications There is no data. Problems Date [...] Status Pt. Type Provider Facility Loc./Unit Complaint [id number] 07/26/2014 12:51:00 07/26/2014 23:59:59 CLS Outpatient JENNIFER HOOVER MD [id number] 02/08/2014 13:32:00 02/08/2014 23:59:59 CLS Outpatient NEDA HALL DO [id number] 03/30/2013 13:55:00 03/30/2013 23:59:59 CLS Outpatient NEDA HALL DO [id number] 10/21/2018 15:39:59 ACT Unknown James Elizondo MD
[2018-10-28 09:50] VITALS: BP 114/47
[2018-10-28] MEDS ORDERED: ceFAZolin INJECTION 1,000 MG in WATER (STERILE) FOR INJECTION 10 ML IV ONE (10:00)
[2018-10-28] MEDS ORDERED: CATHETER FLUSH 10 ML SYR IV PRN (10:00)
[2018-10-28] MEDS: LACTATED RINGERS 1,000 ML IV PRN ×2 (10:02→12:23)
[2018-10-28] MEDS ORDERED: FAMOTIDINE 20MG/2ML IV (PEPCID) IV ONE (10:15)
--- NOTE | 2018-10-28 10:35 | Progress Note-Pre Operative ---
Pre-Operative Progress Note H&P Reviewed The H&P was reviewed, patient examined and no changes noted. Date Seen by Provider: Oct 28, 2018 Time Seen by Provider: 10: Date H&P Reviewed: Oct 28, 2018 Time H&P Reviewed: :30 Pre-Operative Diagnosis: symptomatic biliary dyskinesia PAPO YI MD Oct 28, 2018 10:35
[2018-10-28] MEDS ORDERED: HYDR-34 PO (10:36)
--- NOTE | 2018-10-28 10:37 | Discharge Inst-Surgical ---
D/C Lap Instructions-KASSIDY New, Converted, or Re-Newed RX: RX on Chart Follow Up Appt in 2 weeks Activity as tolerated No driving for 24 hours No driving while on pain medications Incentive Spirometry use every 2 hours while awake Regular Diet Symptoms to Report: Fever over 101 degree F, Nausea/Vomiting Infection Signs and Symptoms to report: Increased redness, Foul odor of wound, Increased drainage Bathing instructions: May shower Operative Area Clean/Dry; Keep incision clean/dry If any problems/questions: Contact your physician or go to Emergency Room PAPO YI MD Oct 28, 2018 10:37
[2018-10-28] MEDS ORDERED: ACETAMINOPHEN 325 MG TABLET PO PRN (10:45)
[2018-10-28] MEDS ORDERED: oxyCODONE/APAP 5/325MG (PERCOCET 5) TABLET PO PRN (10:45)
[2018-10-28] MEDS ORDERED: morphine INJ 10 MG/ML 1ML (SYR OR VIAL) IVP PRN (10:45)
[2018-10-28] MEDS ORDERED: ONDANSETRON 4 MG/2 ML (SDV) Z0FRAN IVP PRN ×2 (10:45→13:30)
[2018-10-28] MEDS ORDERED: BUP/EPI 0.5% 1:200,000 (SENSORCAINE) 30 ML VIAL ONE (11:16)
[2018-10-28] MEDS ORDERED: DEXAMETHASONE 10 MG/ML (DECADRON) 1 ML VIAL ONE (11:29)
[2018-10-28] MEDS ORDERED: fentaNYL INJECTION 100 MCG/2 ML AMP ONE ×2 (11:29→13:12)
[2018-10-28] MEDS ORDERED: MIDAZOLAM 2 MG/2 ML (VERSED) VIAL ONE (11:29)
[2018-10-28] MEDS ORDERED: proPOfol 200 MG/20 ML (DIPRIVAN) VIAL IV ONE (11:29)
[2018-10-28] MEDS ORDERED: SUCCINYLCHOLINE INJ 100 MG/5 ML SYR ONE (11:29)
[2018-10-28] MEDS ORDERED: LIDOCAINE PF 2% 5 ML (XYLOCAINE) VIAL ONE (11:29)
[2018-10-28] MEDS ORDERED: ONDANSETRON 4 MG/2 ML (SDV) Z0FRAN ONE (11:29)
[2018-10-28] MEDS ORDERED: PHENYLEPHRINE 100 MCG/ML 10 ML (ANESTHESIA) SYR ONE (12:36)
[2018-10-28] MEDS ORDERED: SEVOFLURANE (ULTANE) 15 ML INHAL SOLN ONE ×3 (12:39→13:15)
[2018-10-28] MEDS ORDERED: ROCURONIUM 10 MG/ML 5 ML SYRINGE IV ONE (12:46)
[2018-10-28] MEDS ORDERED: GLYCOPYRROLATE 0.2 MG/ML (ROBINUL) 2 ML VIAL ONE (12:55)
[2018-10-28] MEDS ORDERED: NEOSTIGMINE 1 MG/ML 5 ML SYRINGE ONE (12:55)
[2018-10-28] MEDS ORDERED: morphine INJ 10 MG/ML 1ML (SYR OR VIAL) IVP ONE (13:30)
[2018-10-28] MEDS ORDERED: HYDROmorphone 2 MG/ML VIAL (DILAUDID) IV ONE (13:30)
[2018-10-28 14:20] VITALS: BP 100/70
[2018-10-28 14:50] VITALS: BP 93/54
--- NOTE | 2018-10-28 14:55 | Progress Note-Post Operative ---
Post-Operative Progess Note Surgeon (s)/Infantry Indirect Fire Crewmember (s) Surgeon PAPO YI MD Infantry Indirect Fire Crewmember: je alcantara BEEF CATTLE FARM WORKER Pre-Operative Diagnosis symptomatic biliary dyskinesia, epigastric abd wall lesion Post-Operative Diagnosis same, subcutaneous lipoma epigastrium. Procedure & Operative Findings Date of Procedure 10/28/18 Procedure Performed/Findings laparoscopic cholecystectomy, excision lipoma abd wall(2cm). Anesthesia Type GET Estimated Blood Loss Estimated blood loss (mL): minimal Specimens/Packing Specimens Removed gallbladder, abd wall lipoma PAPO YI MD Oct 28, 2018 14:55
--- NOTE | 2018-10-28 15:08 | OPERATIVE REPORT ---
DATE OF SERVICE: 10/28/2018 ATTENDING PRIMARY CARE PHYSICIAN: Chavo Nicholas MD PREOPERATIVE DIAGNOSES: Symptomatic biliary dyskinesia, symptomatic epigastric abdominal wall lesion. POSTOPERATIVE DIAGNOSES: Symptomatic biliary dyskinesia, subcutaneous lipoma approximately 2 cm in size epigastrium. PROCEDURE: Laparoscopic cholecystectomy, excision of lipoma approximately 2 cm in size of the abdominal wall. SURGEON: Papo Yi MD SEPTIC PUMP TRUCK DRIVER: Franklin Bruce APRN ANESTHESIA: General endotracheal. ESTIMATED BLOOD LOSS: Minimal. FINDINGS: A distended gallbladder as well as chronic inflammatory changes. No stones identified. The abdominal wall was explored. There was no hernia identified with a symptomatic lipoma identified approximately 2 cm in size, which was subcutaneous and in the epigastric region. DISPOSITION: The patient tolerated the procedure well. INDICATIONS: The patient is a 53-year-old female who presented to the Emergency Department in [place], [place], for epigastric and right upper abdominal quadrant pain. She reports that this has been occurring intermittently for the past four months. However, in the past few weeks, this has become more frequent as well as more intense in nature. She also does report nausea, vomiting as well as upper abdominal bloating sensation after eating meals. She does not report any fever or chills as well as no diarrhea. She also reports feeling a painful knot in the epigastric region. A CT scan was performed, which did not show any abnormalities. The nodule was painful to palpation in epigastric region and we could not discern what this was based on physical exam alone. DESCRIPTION OF PROCEDURE: The patient was brought to the operating room, laid supine on the table. After adequate IV pain and sedative medications and general endotracheal intubation, the abdomen was prepped and draped in standard surgical fashion. A 0.5% Marcaine with epinephrine was then used to anesthetize the overlying skin in the left upper abdominal quadrant. A transverse skin incision was made using 15 blade. An 0 silk suture was applied to the medial aspect of the incision for retraction and a Veress needle inserted with a low opening pressure of 0 mmHg and the abdomen was then insufflated to 15 mmHg pressure. The Veress needle removed and a 5 mm Xcel trocar placed followed by a 5 mm 45-degree angle laparoscope visualizing the peritoneal cavity. A 4-quadrant abdominal exploration was performed. There was a slightly distended gallbladder. There were some chronic inflammatory changes also identified throughout the hepatoduodenal ligament as well. Under direct visualization, we then proceeded to place a supraumbilical 10 mm port after the skin and peritoneal lining were anesthetized using 0.5% Marcaine with epinephrine and a transverse skin incision made using 15 blade. In a similar manner, a right upper abdominal quadrant 5 mm port was placed. The patient was then placed in reverse Trendelenburg position as well as placed right side up, left side down. The fundus of the gallbladder was then retracted anteriorly and superiorly and the hepatoduodenal ligament was opened using blunt dissection as well as electrocautery on the hook instrument. The entire critical view of safety was identified including the triangle of Calot as well as the cystic duct and artery as the only two structures going into the gallbladder as well as the cystic plate behind the proximal gallbladder. A timeout was then taken. The cystic duct and artery were then clipped proximally, distally and cut with EndoShears. The gallbladder was then dissected off of the liver bed using electrocautery on the hook instrument with visualization of good hemostasis as well as no leaking ducts of Luschka. The gallbladder was removed through the 10 mm port site using EndoCatch bag. The abdominal wall was examined under laparoscopy and there was no epigastric hernia identified. We then palpated the lesion and made an incision overlying skin transversely using a 15 blade. An organized adipose tissue consistent with a lipoma was identified. There was no fascial defect identified to indicate any hernia. The lipoma was subcutaneous and approximately 2 cm in size and was resected using a sharp dissecting scissors and good hemostasis was observed. The 10 mm port site fascia and peritoneum were then closed under direct visualization using Marlon-Loki device and 0 Vicryl suture. The abdomen was desufflated and remaining ports were removed. All skin incisions were closed using 4-0 Monocryl running subcuticular sutures. Wounds were then cleaned and covered with Dermabond. The patient tolerated the procedure well. We will start IV and oral pain medication as well as a clear liquid diet. Once she is tolerating clears, she has good pain control with oral pain medications, ambulating well, we will discharge her home. She will be instructed to do no heavy lifting or exertion for the next two weeks. Job ID: [id number] DocumentID: [id number] Dictated Date: 10/28/2018 13:23:44 Heater Helper Date: 10/28/2018 15:07:55 Dictated By: PAPO YI MD
[2018-10-28 15:11] VITALS: BP 105/62
== END 2018-10-28 15:22 | disposition home or self-care (01) ==
LOC: SDC 09:34
PROVIDERS: ATTEND Surgery
DX: K81.1 Chronic cholecystitis (principal); D17.1 Benign lipomatous neoplasm of skin and subcutaneous tissue of trunk; K21.9 Gastro-esophageal reflux disease without esophagitis; F17.210 Nicotine dependence, cigarettes, uncomplicated; Z79.899 Other long term (current) drug therapy
CPT/HCPCS: 87081; 88304

== ENCOUNTER 2020-05-09 18:29 | Emergency (ER) | payer SELFPAY ==
[~2020-05-09] VITALS: Ht 165.1 cm; Wt 66.9 kg
[~2020-05-09 18:29] MED LIST changes: +HYDR-34 PO
[2020-05-09 18:47] LABS: BILIRUBIN,URINE NEGATIVE (NEGATIVE); CLARITY,URINE CLEAR; COLOR,URINE YELLOW; GLUCOSE, URINE (UA) NEGATIVE (NEGATIVE); KETONES,URINE NEGATIVE (NEGATIVE); LEUKOCYTE ESTERASE ,URINE NEGATIVE (NEGATIVE); NITRITE,URINE NEGATIVE (NEGATIVE); PH,URINE 6.5 (5-9); PROTEIN,URINE NEGATIVE (NEGATIVE); RBC,URINE 0-2 /HPF; WBC,URINE 0-2 /HPF
[2020-05-09 18:48] LABS: BACTERIA,URINE LARGE /HPF
[2020-05-09] MEDS ORDERED: KETOROLAC 30 MG/ML VIAL IVP STA (18:53)
[2020-05-09] MEDS ORDERED: ASPIRIN 81 MG CHEW (CHILDREN'S ASA) PO ONE (19:00)
--- NOTE | 2020-05-09 19:01 | ED General ---
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 She states that she wasn't doing any heavy lifting or straining. She didn't do anything that should've injured the arm. She denies any chest pain but does have the throbbing from her arm going into her left side of her neck and into her shoulder blade. She does feel more short of breath since the arm discomfort started. She denies any fever or chills. She denies any nausea or vomiting. She also has developed a generalized headache since arm throbbing. She has no history of heart problems but does have a strong family history with multiple siblings that have heart disease varying from pacemaker placement and heart attacks to bypass surgery. She does have a history of COPD and smokes at least a pack of cigarettes a day. She does not take any prescription medicines routinely as she states that the inhaler they are prescribed previously did not seem to help her so she stopped using it. She does not follow routinely with any provider. The throbbing pain in her left arm is about 5 out of 10 and encompasses the entire arm. It has been constant since onset. Nothing seems to make it worse or better since onset. She states that she has had some tingling in numbness at times in the left arm but usually just lasts for a few minutes and then goes away. Allergies and Home Medications Allergies Coded Allergies: No Known Drug Allergies (Unverified , 10/17/18) Home Medications Baclofen 10 Mg Tablet, 10 MG PO BID PRN for arm pain Prescribed by: TIGIST PALACIOS on 05/09/202110 Hydrocodone Bit/Acetaminophen 1 Tab Tab, 1 EACH PO Q6H PRN for severe pain Prescribed by: TIGIST PALACIOS on 10/17/184 Hydrocodone Bit/Acetaminophen 1 Ea Tablet, 1 EACH PO Q4H PRN for PAIN-MODERATE Prescribed by: PAPO YI on 10/28/18 1036 Ondansetron 4 Mg Tab.rapdis, 4 MG PO Q6H PRN for NAUSEA/VOMITING Prescribed by: TIGIST PALACIOS on 10/17/182203 Pantoprazole Sodium 20 Mg Tablet.dr, 20 MG PO DAILY Prescribed by: TIGIST Angeles ENYART on 10/17/182203 Prednisone 20 Mg Tab, 40 MG PO DAILY Prescribed by: TIGIST DE LA TORRERT on 05/09/202110 Patient Home Medication List Home Medication List Reviewed: Yes Review of Systems Review of Systems Constitutional: No chills, No fever EENTM: no symptoms reported Respiratory: dyspnea on exertion, short of breath (chronic but worse since pain started in arm); No stridor, No wheezing Cardiovascular: No chest pain, No edema, No palpitations Gastrointestinal: No abdominal pain, No nausea, No vomiting Genitourinary: no symptoms reported Musculoskeletal: see HPI Skin: no symptoms reported Psychiatric/Neurological: Headache (generalized headache since arm throbbing) Past Wugkdro-Xwkbyr-Wbjgxj Hx Past Med/Social Hx: Reviewed Nursing Past Med/Soc Hx Patient Social History Alcohol Use: Denies Use Recreational Drug Use: No Smoking Status: Current Everyday Smoker Type Used: Cigarettes 2nd Hand Smoke Exposure: No Recent Foreign Travel: No Contact w/Someone Who Travel: No Recent Hopitalizations: No Physical Abuse: No Sexual Abuse: No Mistreated: No Fear: No Seasonal Allergies Seasonal Allergies: No Past Medical History Surgeries: Yes (lump removed from under arm) Hysterectomy Respiratory: No Cardiac: No Neurological: No 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 0.0oz. [id number]; 24.0 BMI Method:Stated General Appearance: No Apparent Distress, Thin Eyes: Bilateral Eye PERRL, Bilateral Eye EOMI Neck: Full Range of Motion, Non Tender, Supple Respiratory: Chest Non Tender, No Accessory Muscle Use, No Respiratory Distress, Decreased Breath Sounds; No Rhonci, No Stridor, No Wheezing Cardiovascular: Regular Rate, Rhythm, No JVD, No Murmur, Normal Peripheral Pulses Gastrointestinal: Normal Bowel Sounds, No Pulsatile Mass, Non Tender, Soft Back: No CVA Tenderness Extremity: Normal Capillary Refill, Normal Inspection, Normal Range of Motion, No Calf Tenderness, No Pedal Edema Neurologic/Psychiatric: Alert, Oriented x3, No Motor/Sensory Deficits, wood heel flap inserter II- XII Norm as Tested Skin: Normal Color, Warm/Dry Progress/Results/Core Measures Suspected Sepsis SIRS Temperature: Pulse: Respiratory Rate: Laboratory Tests 05/09/20 18:44: White Blood Count 7.9 Blood Pressure / Mean: Laboratory Tests 05/09/20 18:44: Creatinine 0.81, INR Comment 1.0, Platelet Count 215, Total Bilirubin 0.2 Results/Orders Lab Results Laboratory Tests Test 05/09/20 18:33 05/09/20 18:44 05/09/20 20:20 Range/Units Urine Color YELLOW Urine Clarity CLEAR Urine pH 6.5 5-9 Urine Specific [place] 1.025 H 1.016-1.022 Urine Protein NEGATIVE NEGATIVE Urine Glucose (UA) NEGATIVE NEGATIVE Urine Ketones NEGATIVE NEGATIVE Urine Nitrite NEGATIVE NEGATIVE Urine Bilirubin NEGATIVE NEGATIVE Urine Urobilinogen 0.2 < = 1.0 MG/DL Urine Leukocyte Esterase NEGATIVE NEGATIVE Urine RBC (Auto) 2+ H NEGATIVE Urine RBC 0-2 /HPF Urine WBC 0-2 /HPF Urine Squamous Epithelial Cells 5-10 /HPF Urine Crystals NONE /LPF Urine Bacteria LARGE H /HPF Urine Casts NONE /LPF Urine Mucus SMALL H /LPF Urine Culture Indicated NO White Blood Count 7.9 4.3-11.0 10^3/uL Red Blood Count 3.89 L 4.35-5.85 10^6/uL Hemoglobin 12.9 11.5-16.0 G/DL Hematocrit 38 35-52 % Mean Corpuscular Volume 98 80-99 FL Mean Corpuscular Hemoglobin 33 25-34 PG Mean Corpuscular Hemoglobin Concent 34 32-36 G/DL Red Cell Distribution Width 13.2 10.0-14.5 % Platelet Count 215 130-400 10^3/uL Mean Platelet Volume 10.8 H 7.4-10.4 FL Immature Granulocyte % (Auto) 0 % Neutrophils (%) (Auto) 55 42-75 % Lymphocytes (%) (Auto) 34 12-44 % Monocytes (%) (Auto) 8 0-12 % Eosinophils (%) (Auto) 2 0-10 % Basophils (%) (Auto) 1 0-10 % Neutrophils # (Auto) 4.3 1.8-7.8 X 10^3 Lymphocytes # (Auto) 2.7 1.0-4.0 X 10^3 Monocytes # (Auto) 0.7 0.0-1.0 X 10^3 Eosinophils # (Auto) 0.2 0.0-0.3 10^3/uL Basophils # (Auto) 0.1 0.0-0.1 10^3/uL Immature Granulocyte # (Auto) 0.0 0.0-0.1 10^3/uL Prothrombin Time 13.2 12.2-14.7 SEC INR Comment 1.0 0.8-1.4 Activated Partial Thromboplast Time 29 24-35 SEC Sodium Level 142 135-145 MMOL/L Potassium Level 3.5 L 3.6-5.0 MMOL/L Chloride Level 110 H 98-107 MMOL/L Carbon Dioxide Level 24 21-32 MMOL/L Anion Gap 8 5-14 MMOL/L Blood Urea Nitrogen 13 7-18 MG/DL Creatinine 0.81 0.60-1.30 MG/DL Estimat Glomerular Filtration Rate > 60 BUN/Creatinine Ratio 16 Glucose Level 100 70-105 MG/DL Calcium Level 8.9 8.5-10.1 MG/DL Corrected Calcium 9.0 8.5-10.1 MG/DL Magnesium Level 1.9 1.6-2.4 MG/DL Total Bilirubin 0.2 0.1-1.0 MG/DL Aspartate Amino Transf (AST/SGOT) 19 5-34 U/L Alanine Aminotransferase (ALT/SGPT) 16 0-55 U/L Alkaline Phosphatase 81 40-136 U/L Troponin I < 0.30 < 0.30 <0.30 NG/ML Pro-B-Type Natriuretic Peptide 258.7 H <75.0 PG/ML Total Protein 6.0 L 6.4-8.2 GM/DL Albumin 3.9 3.2-4.5 GM/DL My Orders Orders - TIGIST PALACIOS MD Ua Culture If Indicated (05/09/20 18:35) Ekg Tracing (05/09/20 18:37) Cbc With Automated Diff (05/09/20 18:53) Magnesium (05/09/20 18:53) Comprehensive Metabolic Panel (05/09/20 18:53) Protime With Inr (05/09/20 18:53) Partial Thromboplastin Time (05/09/20 18:53) Monitor-Rhythm Ecg Trace Only (05/09/20 18:53) Aspirin Chewable Tablet (Baby Aspirin Ch (05/09/20 19:00) Ed Iv/Invasive Line Start (05/09/20 18:53) Troponin I Fs (05/09/20 18:53) Probnp Fs (05/09/20 18:53) Chest Pa/Lat (2 View) (05/09/20 18:53) Ketorolac Injection (Toradol Injection) (05/09/20 18:53) Methylprednisolone Sod Succ (Solu-Medrol (05/09/20 20:11) Orphenadrine Inj (Ed Only) (Norflex Inje (05/09/20 20:11) Troponin I Fs (05/09/20 20:11) Medications Given in ED Current Medications Medications Dose Ordered Sig/Marva Route Start Time Stop Time Status Last Admin Dose Admin Aspirin 324 mg ONCE ONCE PO 05/09/20 19:00 05/09/20 19:01 DC 05/09/20 19:11 324 MG Vital Signs/I&O 05/09/20 05/09/20 18:47 21:14 Temp 36.7 Pulse 84 65 Resp 20 16 B/P (MAP) 112/64 (80) 101/73 Pulse Ox 99 98 O2 Delivery Room Air Room Air Capillary Refill : Progress Note #1: Progress Note With her strong family history of cardiac disease and having large smoking history and will obtain cardiac workup. Try aspirin and Toradol the see if that helps with her symptoms. Electrocardiogram does not show any acute ST elevation. Progress Note #2: Progress Note ECG negative for acute KS or ischemic changes. Chest x-ray is clear as well. Her initial lab work appears stable without acute significant abnormality. Her initial troponin is 0. Patient reports some mild improvement in her symptoms with her constant throbbing pain in the arm and neck and now pain more intermittent and her headache starting to ease up. Advised the patient that she has been here almost 2 hours so it is almost time for redraw on her troponin so I will obtain the second troponin. At that point if she is still not having any elevation of her lab we could reevaluate if she could be discharged home to foll ow up as an outpatient with cardiology or if she would need to be admitted. If she continues to have pain and her symptoms are worsening or if her troponin is rising then she will need to be more aggressively evaluated. If her symptoms are improving and her troponin is staying 0 and not showing any elevation then this is less likely to be cardiac and more likely to be musculoskeletal and she more safely be evaluated as an outpatient. In case this is musculoskeletal or possible pinched nerve with radiculopathy Will try a dose of Solu-Medrol with Norflex. Progress Note #3: Progress Note The repeat troponin is still 0. Recheck of the patient as I am updated her about the labs and she reports that her symptoms and arm have completely resolved with the muscle relaxer and steroid. This is again reassuring that this is more likely to be related to musculoskeletal and possible neck or pinched nerve with her being at work and doing repetitive motion and working with making pizzas at [employer]. Still counseled to follow up as an outpatient for cardiology risk stratification based on her family history of cardiac disease. Also counseled to seek medical care for further evaluation if she has any other symptoms or worsening problems. ECG Initial ECG Impression Date: May 09, 2020 Initial ECG Impression Time: 18:36 Initial ECG Rate: 82 Initial ECG Rhythm: Normal Sinus Initial ECG Comparisson: No Previous ECG Available Comment Normal sinus rhythm with a heart rate of 82 bpm. CA interval [address] elevation. QT interval 371 ms with a QTc interval 434 ms. There is no prior tracing immediately available for comparison. Diagnostic Imaging Diagonstic Imaging: Xray Plain Films/CT/US/NM/MRI: chest Comments NAME: MIGUELITO HERNÁNDEZ [facility] REC#: [id number] PT STATUS: REG ER : 1965 PHYSICIAN: TIGIST PALACIOS MD ADMIT DATE: 05/09/20/ER FS Signed Date of Exam:05/09/20 CHEST PA/LAT (2 VIEW) INDICATION: Chest pain and dyspnea PA and lateral views of the chest are obtained. COMPARISON: No previous study is available for comparison at this time. FINDINGS: Heart size and pulmonary vasculature are within normal limits, and the lungs are clear, bilaterally. IMPRESSION: Unremarkable chest. Dictated by: Dictated on workstation # [id number] Dict: 05/09/201912 Trans: 05/09/201944 [facility] [id number] Interpreted by: LYNDON WOLFF MD Electronically signed by: LYNDON WOLFF MD 05/09/201944 Departure Impression Primary Impression: Left arm pain Additional Impressions: Pinched nerve in neck Family history of cardiac disorder Disposition: HOME, SELF-CARE Condition: Stable Departure-Patient Inst. Decision time for Depature: 21:07 Referrals: KIM NEVES MD NO,LOCAL PHYSICIAN (PCP) Primary Care Physician Patient Instructions: Cervical Muscle Strain (DC), Radiculopathy (DC), Lowering Your Risk of Heart Disease Add. Discharge Instructions: Try the muscle relaxer and steroid to see if that helps from a pinched nerve and neck pain standpoint. If you have worsening problems or more concerns then return or seek medical care for further evaluation. Call cardiology for outpatient testing and risk stratification based on your family history of heart disease. All discharge instructions reviewed with patient and/or family. Voiced understanding. Scripts Prednisone (Prednisone) 20 Mg Tab 40 MG PO DAILY for arm pain for 5 Days, #10 TAB 0 Refills Prov: TIGIST PALACIOS MD 05/09/20 Baclofen (Baclofen) 10 Mg Tablet 10 MG PO BID PRN for arm pain for 10 Days, #20 TAB 0 Refills Prov: TIGIST PALACIOS MD 05/09/20 Work/School Note: Work Release Form Date Seen in the Emergency Department: May 09, 2020 Return to Work: May 10, 2020 Restrictions: No Restrictions TIGIST PALACIOS MD May 09, 2020 19:01
[2020-05-09 19:11] LABS: HEMOGLOBIN 12.9 G/DL (11.5-16.0); MEAN CORPUSCULAR HEMOGLOBIN 33 PG (25-34); WHITE BLOOD COUNT 7.9 10^3/uL (4.3-11.0)
[2020-05-09 19:12] LABS: BASOPHILS # (AUTO) 0.1 10^3/uL (0.0-0.1); BASOPHILS % (AUTO) 1 % (0-10); EOSINOPHILS # (AUTO) 0.2 10^3/uL (0.0-0.3); EOSINOPHILS % (AUTO) 2 % (0-10); HEMATOCRIT 38 % (35-52); LYMPHOCYTES # (AUTO) 2.7 X 10^3 (1.0-4.0); LYMPHOCYTES % (AUTO) 34 % (12-44); MEAN CORPUSCULAR HGB CONC 34 G/DL (32-36); MEAN CORPUSCULAR VOLUME 98 FL (80-99); MEAN PLATELET VOLUME 10.8 FL (7.4-10.4); MONOCYTES # (AUTO) 0.7 X 10^3 (0.0-1.0); MONOCYTES % (AUTO) 8 % (0-12); NEUTROPHILS # (AUTO) 4.3 X 10^3 (1.8-7.8); NEUTROPHILS % (AUTO) 55 % (42-75); PLATELET COUNT 215 10^3/uL (130-400)
--- NOTE | 2020-05-09 19:19 | Diagnostic Imaging Report ---
INDICATION: Chest pain and dyspnea PA and lateral views of the chest are obtained. COMPARISON: No previous study is available for comparison at this time. FINDINGS: Heart size and pulmonary vasculature are within normal limits, and the lungs are clear, bilaterally. IMPRESSION: Unremarkable chest. Dictated by: Dictated on workstation # [id number]
[2020-05-09 19:20] LABS: PROTHROMBIN TIME PATIENT 13.2 SEC (12.2-14.7)
[2020-05-09 19:31] LABS: ALANINE AMINOTRANSFERASE 16 U/L (0-55); ALBUMIN 3.9 GM/DL (3.2-4.5); ALKALINE PHOSPHATASE 81 U/L (40-136); BILIRUBIN,TOTAL 0.2 MG/DL (0.1-1.0); BUN/CREATININE RATIO 16; CALCIUM 8.9 MG/DL (8.5-10.1); CARBON DIOXIDE 24 MMOL/L (21-32); CHLORIDE 110 MMOL/L (98-107); CREATININE SERUM 0.81 MG/DL (0.60-1.30); GFR ESTIMATED > 60; GLUCOSE 100 MG/DL (70-105); MAGNESIUM 1.9 MG/DL (1.6-2.4); POTASSIUM 3.5 MMOL/L (3.6-5.0); SODIUM 142 MMOL/L (135-145)
[2020-05-09] MEDS ORDERED: methylPREDNISolone 125 MG (Solu-MEDROL) VIAL IVP STA (20:11)
[2020-05-09] MEDS ORDERED: ORPHENADRINE 60 MG/2 ML (NORFLEX) AMP (ED ONLY) IVP STA (20:11)
[2020-05-09] MEDS ORDERED: BACL10TA PO (21:11)
[2020-05-09] MEDS ORDERED: PRD20T PO (21:11)
[2020-05-09 21:14] VITALS: BP 101/73
== END 2020-05-09 21:14 | disposition home or self-care (01) ==
LOC: EDUNIT# 18:29 → ER FS 18:30
DX: M79.602 Pain in left arm (principal); G58.8 Other specified mononeuropathies; F17.210 Nicotine dependence, cigarettes, uncomplicated
CPT/HCPCS: 36415; 71046; 80053; 81000; 83735; 83880; 84484; 85025; 85610; 85730; 93005; 93041